=== PATIENT | male | born 1930 | race Caucasian/White ===

== ENCOUNTER 2017-10-09 12:40 | Outpatient (CLI) | payer MEDICARE, BC ==
[2017-10-09 13:41] LABS: Hemoglobin 15.6 g/dL (14.0-18.0); Mean Corpuscular HGB CONC 33.3 g/dL (32.0-36.0); Mean Corpuscular Hemoglobin 33.6 pg (27.0-31.0); Mean Platelet Volume 7.3 fL (7.4-10.4); Platelet Count 199 thou/uL (130-400); RBC Distribution Width 11.7 % (11.5-14.5); Red Blood Cell (RBC) Count 4.63 mill/uL (4.70-6.10); White Blood Cell (WBC) Count 8.4 thou/uL (4.8-10.8)
[2017-10-09 13:45] LABS: PTT 27.5 SEC (22.9-36.1)
[2017-10-09 14:02] LABS: ALT (SGPT) 37 U/L (8-55); AST (SGOT) 28 U/L (5-34); Albumin 4.3 g/dL (3.4-4.8); Alkaline Phosphatase 64 U/L (40-150); Anion Gap 13 mmol/L (10-20); BUN (Urea Nitrogen) 15 mg/dL (8.4-25.7); Bilirubin, Total 0.6 mg/dL (0.2-1.2); Calc. Creatinine Clearance 0 mL/min (70-130); Calcium 9.5 mg/dL (7.8-10.44); Carbon Dioxide 23 mmol/L (23-31); Chloride 104 mmol/L (98-107); Estimated GFR-MDRD 66; Globulin 2.6 g/dL (2.4-3.5); Glucose 112 mg/dL (83-110); Potassium 4.5 mmol/L (3.5-5.1); Protein, Total 6.9 g/dL (5.8-8.1); Sodium 135 mmol/L (136-145)
== END 2017-10-09 12:41 | disposition home or self-care (01) ==
LOC: LABBT 12:40
PROVIDERS: ATTEND Internal Medicine Cardiovascular Disease
DX: Z48.812 Encounter for surgical aftercare following surgery on the circulatory system (principal); Z95.818 Presence of other cardiac implants and grafts
CPT/HCPCS: 80053; 85027; 85610; 85730; 93005; 93010

== ENCOUNTER → 2017-10-24 | Day surgery (SDC) | payer MEDICARE, BC ==
[2017-10-09 13:14] VITALS: BMI 25.4
[~2017-10-24] MED LIST: Lidocaine 1% w/Epinephrine 1:100K 30 ML VIAL ONE
--- NOTE | 2017-10-24 10:10 | DIS ---
DATE OF OUTPATIENT PROCEDURE: 10/24/2017 INDICATION FOR PROCEDURE: This was an elderly 87-year-old gentleman who is status post an implantabl e loop recorder implantation several years ago prior to undergoing pacemaker insertion. His other di agnoses include dyslipidemia. DISCHARGE DIAGNOSES: This was an elderly 87-year-old gentleman who is status post an implantable loo p recorder implantation several years ago prior to undergoing pacemaker insertion. His other diagnos es include dyslipidemia. PROCEDURE: Procedure in hospital was removal of the implantable loop recorder. FOLLOWUP: His follow up will be with me in the next 1-2 weeks for evaluation of the wound. Otherwise , he can resume his normal follow ups with his other physicians and resume also his previous activiti es. DISCHARGE MEDICATIONS: Same as his admission medications. These include aspirin 81 mg a day, levoth yroxine 88 mcg daily, Crestor 5 mg a day, Co Q 10 4 tablets a day, multivitamins daily, Saw Sabattus 500 mg daily. HOSPITAL COURSE: This is very pleasant 87-year-old gentleman who underwent a LINQ implantable loop r ecorder several years ago. The device has now reached I believe end of the effective lifespan and th en the pacemaker has already been inserted and this gives good also evaluation of any type of arrhyth mias. The pacemaker was implanted in 2014, it has been functioning normally. At this time he was ad vised to undergo the removal of the LINQ device implantable loop recorder. This was performed today without difficulties or complications. If the patient will remain stable, he will be discharged to [facility] as soon as his discharge papers are in order. He will see me back in the office in the next 1-2 weeks. Should he have any problems with any obvious signs of infection then he is to call me as soon as possible.
--- NOTE | 2017-10-24 23:31 | CCL ---
DATE OF PROCEDURE: 10/24/2017 INDICATION FOR PROCEDURE: An 87-year-old patient who had undergone an implantable loop recorder several years ago and then unde r eventually underwent pacemaker insertion. He was requesting that we remove the Linq loop recorder. The pacemaker has been functioning normally and he was advised to have removal of the Linq. He was taken to the cardiac catheterization lab where he was prepped and draped in sterile fashion. A Linq which is an implantable loop recorder. He was prepped and draped in sterile fashion. Using 1 % local Xylocaine and the area was anesthetized and using careful technique and a small incision was made old incisional site where the Ling had been implanted and then new device was easily removed wi thout complications or difficulties and the wound was closed using Dermabond and Steri-Strips. IMPRESSION: Status post Linq implantable loop recorder and then removal of the device today as the device had tiana roached elective removal or in of life on the device.
== END ==
LOC: CCL 06:36
PROVIDERS: ATTEND Internal Medicine Cardiovascular Disease
PROC: 02P Heart and Great Vessels, Removal (ICD-10-PCS; principal; 2017-10-24)
DX: Z45.89 Encounter for adjustment and management of other implanted devices (principal); Z95.818 Presence of other cardiac implants and grafts; E78.5 Hyperlipidemia, unspecified; Z95.5 Presence of coronary angioplasty implant and graft
CPT/HCPCS: 33284; J2001

== ENCOUNTER 2018-07-30 10:32 | Outpatient (CLI) | payer MEDICARE, BC ==
--- NOTE | 2018-07-30 11:15 | RAD ---
TWO VIEWS CHEST: Comparison: 04-20-15 History: Respiratory infection for three weeks. FINDINGS: Two views of the chest shows normal sized cardiomediastinal silhouette with atherosclerotic calcifica tions in the aorta. A pacemaker is seen which its leads in the right atrium of the ventricle. There i s no evidence of consolidation or pleural effusion. A calcified granuloma projects over the left uppe r lobe. IMPRESSION: No evidence of acute cardiopulmonary disease. POS: [facility]
== END 2018-07-30 10:33 | disposition home or self-care (01) ==
LOC: SCSRAD 10:32
PROVIDERS: ATTEND Nurse Practitioner Family
DX: J18.0 Bronchopneumonia, unspecified organism (principal)
CPT/HCPCS: 71046

== ENCOUNTER 2018-08-05 11:35 | Inpatient (IN) | payer MEDICARE, BC ==
--- NOTE | 2018-08-05 12:59 | RAD ---
TWO VIEWS CHEST: DATE: 08/05/2018. PROVIDED CLINICAL HISTORY: Cough. FINDINGS: Comparison 07/30/2018. Cardiac and mediastinal silhouette is unchanged in appearance. Vascular calci fication is again noted. Left subclavian cardiac pacing device is again seen in similar position. E mphysematous changes are redemonstrated. No focal consolidation, pleural fluid, or pneumothorax appa rent. IMPRESSION: Stable radiographic appearance of the chest. POS: [facility]
[2018-08-05] MEDS ORDERED: Iopamidol 370 76% 100 ML VIAL ONE (13:41)
[2018-08-05 13:59] LABS: #Eosinphils 0.1 thou/uL (0.0-0.7); #Lymphocytes 1.3 thou/uL (1.20-3.40); #Monocytes 0.8 thou/uL (0.11-0.59); #Neutrophils 5.7 thou/uL (1.40-6.50); %Basophils 0.1 % (0.0-1.0); %Eosinophils 1.2 % (0.0-10.0); %Lymphocytes 16.6 % (21.0-51.0); %Monocytes 10.2 % (0.0-10.0); %Neutrophils 71.9 % (42.0-75.0); Hemoglobin 13.9 g/dL (14.0-18.0); Mean Corpuscular HGB CONC 33.5 g/dL (32.0-36.0); Mean Corpuscular Hemoglobin 31.5 pg (27.0-31.0); Mean Corpuscular Volume 93.9 fL (78.0-98.0); Mean Platelet Volume 6.1 fL (7.4-10.4); Platelet Count 231 thou/uL (130-400); RBC Distribution Width 11.8 % (11.5-14.5); Red Blood Cell (RBC) Count 4.42 mill/uL (4.70-6.10); White Blood Cell (WBC) Count 7.9 thou/uL (4.8-10.8)
[2018-08-05 14:21] LABS: ALT (SGPT) 24 U/L (8-55); AST (SGOT) 22 U/L (5-34); Albumin 3.6 g/dL (3.4-4.8); Alkaline Phosphatase 73 U/L (40-150); Anion Gap 13 mmol/L (10-20); BUN (Urea Nitrogen) 13 mg/dL (8.4-25.7); Bilirubin, Total 0.4 mg/dL (0.2-1.2); Calc. Creatinine Clearance 0 mL/min (70-130); Calcium 9.3 mg/dL (7.8-10.44); Carbon Dioxide 24 mmol/L (23-31); Chloride 102 mmol/L (98-107); Estimated GFR-MDRD 84; Globulin 3.4 g/dL (2.4-3.5); Glucose 98 mg/dL (83-110); Potassium 4.4 mmol/L (3.5-5.1); Sodium 135 mmol/L (136-145)
[2018-08-05] MEDS ORDERED: Enoxaparin Sodium 80 MG/0.8 ML SYRINGE ONE (15:52)
--- NOTE | 2018-08-05 16:00 | CT ---
CT CHEST WITH IV CONTRAST: 08/05/2018 PROVIDED CLINICAL HISTORY: Cough. FINDINGS: There is a large central pulmonary embolus present, which basically occludes the entire right main pu lmonary artery. This commences in the distal main pulmonary artery and nearly completely occludes th e origin of the left main pulmonary artery. This clot extends into the right upper lobe pulmonary ar terial system. There is, however, no evidence for increased right ventricular pressures. Vascular c alcification is noted. The heart, pericardium, and great vessels appear otherwise unremarkable. The lung are free of significant opacity. No pleural fluid or pneumothorax apparent. Left subclavian c ardiac pacing device is noted. Visualized portions of the upper abdomen demonstrate no acute process . The osseous structures demonstrate no concerning lytic or blastic lesions. IMPRESSION: Saddle pulmonary embolus with preferential involvement and essential occlusion of the right main pulm onary artery. Findings communicated to Dr. Fleming, via telephone, at 3:31 p.m. on 08/05/2018. CODE CR POS: [facility]
[2018-08-05 16:26] LABS: Troponin I 0.017 ng/mL (< 0.028)
[2018-08-05] MEDS ORDERED: Bisacodyl 5 MG TAB PO PRN (18:00)
[2018-08-05] MEDS ORDERED: Ondansetron PF 4 MG/2 ML Vial IVP PRN (18:00)
[2018-08-05] MEDS ORDERED: Acetaminophen 325 MG TAB PO PRN (18:00)
[2018-08-05] MEDS ORDERED: Senokot S 8.6-50 MG TAB PO PRN (18:00)
[2018-08-05] MEDS ORDERED: hydrALAZINE 20 MG/ML VIAL SLOW IVP PRN (18:00)
[2018-08-05] MEDS ORDERED: cloNIDine 0.1 MG TAB PO PRN (18:00)
[2018-08-05] MEDS ORDERED: Nitroglycerin 0.4 MG TAB (25 Tab Bottle) SL PRN (18:00)
[2018-08-05] MEDS ORDERED: Calcium Carbonate 500 MG ChewTAB PO PRN (18:00)
[2018-08-05 18:35] VITALS: BMI 21.4
[2018-08-05 19:12] LABS: Troponin I 0.034 ng/mL (< 0.028)
--- NOTE | 2018-08-05 21:03 | HP ---
PRIMARY CARE PHYSICIAN: Cash Price MD CHIEF COMPLAINT: Cough and worsening shortness of breath. HISTORY OF PRESENTING ILLNESS: Mr. Greco is a very pleasant 88-year-old male with past medical history only of dyslipidemia, who presented to the emergency room with unrelenting cough for 3 weeks as well as worsening shortness of breath. History is mainly obtained from the patient himself and electronic medical records have been reviewed and case has been discussed with admitting ER physician, Dr. Fleming. Mr. Greco reports that he is fairly active and has been in his usual health up until 2-1/2 weeks ago. He started to have some nagging cough, for which he sought attention at the primary care physician's office. He was given some inhalers and eventually some antibiotic injections and it did not go away. He later started to have some shortness of breath, which has progressively gotten worse to the point where he presented to the ER today. He has also been treated with steroid for this URI by his PCP, but the symptoms have been unrelenting. He denies any fever or chills. He denies any chest pain or palpitations. He denies any lower extremity swelling or pain. No recent illnesses. No recent travel. He denies any weight loss, night sweats, or malaise. Denies any blood in his stools. Denies any urinary symptoms. Upon presentation to the emergency room, he was hemodynamically stable with a blood pressure of 157/89, heart rate 77, respirations 20, and saturating 95% on room air. His initial evaluation included a chest x-ray, which was unremarkable. A 12-lead EKG showed a paced rhythm with complete left bundle branch block. He underwent a CT angio of his chest which showed a saddle PE with preferential involvement and essential occlusion of the right main pulmonary artery. There was no evidence of increased right ventricular pressure as per the CT scan. No pulmonary opacities were noticed. No pulmonary edema was seen. He was given a therapeutic dose of Lovenox and is now being admitted for saddle pulmonary embolism. The patient reports that he recently had a skin cancer removed from his scalp by a head refrigerating engineer, Dr. Henriquez. He reports that he was off aspirin for this for a week. He actually has more procedures scheduled to get the remaining surrounding area removed by his head refrigerating engineer in the upcoming few weeks. PAST MEDICAL HISTORY: 1. History of sick sinus syndrome, status post pacemaker placement. 2. Hypothyroidism. 3. Dyslipidemia. PAST SURGICAL HISTORY: 1. Hernia repair. 2. Pacemaker placement 2 to 3 years ago. PSYCHIATRIC HISTORY: None. No anxiety. No depression. SOCIAL HISTORY: He is very active and plays golf. He has no history of drug, tobacco, or alcohol abuse. Lives with his family. CODE STATUS: Full code discussed with the patient. FAMILY HISTORY: Denies any family history of clotting or bleeding disorder or any cancers. ALLERGIES: NO KNOWN MEDICATION ALLERGIES. HOME MEDICATIONS: As listed in the ER records; 1. Levothyroxine 88 mcg daily. 2. Crestor 5 mg daily. 3. Zyrtec 10 mg daily. These further needs to be confirmed. REVIEW OF SYSTEMS: A 12-point review of system was done. It was negative except for those mentioned in the history and physical. LABORATORY DATA: His CBC is unremarkable except for hemoglobin at 13.9. His differential shows mild elevation in the monocytes at 10.2%, but otherwise it is within normal limits. Serum chemistry shows sodium of 135. Troponin is 0.025 with repeat troponin of 0.017. BNP normal at 90. PSA 3.15. Chest x-ray by my review has no evidence of pleural effusion or edema. A 12-lead EKG by my review shows paced rhythm without acute ST or T-wave changes. CT angio as above shows saddle PE with obstruction of the right pulmonary artery. PHYSICAL EXAMINATION: VITAL SIGNS: Most recent vital signs; temperature 97.5, pulse of 73, respirations 18, saturating 93% on room air, blood pressure 179/91. GENERAL: He gets easily winded with talking, but is in no acute distress. Awake, alert, and oriented x3. Appears age-appropriate and well nourished. HEENT: Mucous membrane is moist and pink. No oropharyngeal exudate or erythema. Head is normocephalic, atraumatic. Pupils equal, reactive to light and accommodation. Extraocular movements intact. NECK: Supple without any lymphadenopathy, JVD, or bruit. CHEST: Clear to auscultation without any wheezing, rales, or rhonchi. HEART: Rate and rhythm is regular without any murmurs, rubs, or gallops. ABDOMEN: Soft, nontender, nondistended with positive bowel sounds. EXTREMITIES: Free of any cyanosis, clubbing, or edema. NEUROLOGICAL: Nonfocal. SKIN: Free of any rashes or bruises, feels warm and dry to touch. PSYCHIATRIC: Normal affect. IMPRESSION AND PLAN: 1. Saddle pulmonary embolism. There appears to be some chronicity to his pulmonary embolism. Thankfully, he is hemodynamically stable at this time without any significant evidence of right ventricular strain. There is no pulmonary edema. Cardiac enzymes and BNP are within normal limits. I have briefly discussed this case with voice over announcer on-call, Dr. Tan, and at this time, TPA is not given as the patient is quite stable. We will continue with full anticoagulation with Lovenox 1 mg/kg b.i.d. and he will most likely require oral anticoagulation for 3 to 6 months. The cause of the pulmonary embolism is unknown at this time. It seems unprovoked. He has no evidence to suggest DVT in his legs either. No symptoms to suggest occult malignancies. PSA was done for this reason and was found to be within normal limits. We will also check stool for occult blood. Consult Pulmonary Medicine while in-house. 2. Hypothyroidism. We will restart his levothyroxine. 3. Dyslipidemia. Restart his Crestor. 4. History of skin cancer. I have encouraged him to call his head refrigerating engineer with this new development as I am not sure how urgent his skin cancer removal surgery is. At this time, he absolutely needs anticoagulation without interruption for at the very least 3 months. 5. Code status, full code discussed with the patient in detail. 6. Deep venous thrombosis and gastrointestinal prophylaxis. Continue supportive care. DISPOSITION: Mr. Greco will be admitted to hospital for saddle PE. He is currently hemodynamically stable. Estimated length of stay at this time is at least 2 to 3 midnights. Further management will depend upon his clinical course. Job ID: [id number]
[2018-08-05] MEDS: Famotidine 20 MG TAB PO SCH (21:11)
[2018-08-05] MEDS: Rosuvastatin 5 MG TAB PO SCH (21:11)
[2018-08-05] MEDS: Enoxaparin Sodium 80 MG/0.8 ML SYRINGE SC SCH (21:12)
--- NOTE | 2018-08-06 01:43 | CON ---
DATE OF CONSULTATION: 08/05/2018 SERVICE: Pulmonary Medicine. HISTORY OF PRESENT ILLNESS: The patient is a very pleasant 88-year-old white male, who had an onset of cough about 3 weeks ago. He went to see his primary care physician, who gave him a shot of steroids. The cough persisted and next week, he went back. He ended up getting put on Levaquin. The cough persisted. As such , he went back to his primary care physician and he got a chest x-ray, which was essentially unremarkable. He was having paroxysms of coughing. He was not having fevers, chills, nausea, vomiting, or diarrhea. As such, he presented to the emergency department. At that location, he ended up getting a CT of the chest with contrast, and a respiratory virus panel. The CT of the chest with contrast was unremarkable except for a massive pulmonary embolism. That being said, the patient did not have any tachypnea, tachycardia, hypoxemia, chest discomfort, or pleuritic chest pain. The study was suboptimal for evaluating a pulmonary embolism. He also had a respiratory virus panel that was positive for a viral organism. Otherwise , he is in his usual state of health. In between his coughing fits, he has actually no complaints. Of note, his recently got sick as well. PAST MEDICAL HISTORY: 1. Dyslipidemia. 2. Hypothyroidism. 3. Seasonal allergies. PAST SURGICAL HISTORY: 1. Herniorrhaphy. 2. Pacemaker placement 2 to 3 years ago. 3. Loop recorder previously placed. SOCIAL HISTORY: Negative for alcohol, tobacco, or illicit drug use. He denies exposure to chemicals, dust, asbestos, or tuberculosis. He walks 3 miles on a daily basis. He had been able to do this for the last couple of months, but specifically denies dyspnea with exertion. FAMILY HISTORY: Noncontributory. ALLERGIES: NO KNOWN DRUG ALLERGIES. MEDICATIONS: List of his inpatient medications was reviewed. No specific updates were made at this time. REVIEW OF SYSTEMS: General, head, ears, eyes, nose, throat, cardiovascular, respiratory, GI, , musculoskeletal, neurologic, and skin are negative except as mentioned in the HPI. PHYSICAL EXAMINATION: VITAL SIGNS: Afebrile, pulse 72, blood pressure 172/85, respirations 16, and saturation 92% on room air. GENERAL: The patient is awake and alert, in no apparent distress. LUNGS: Excellent air entry. There is no prolonged expiratory phase or wheezing. There is no other adventitious sounds. HEART: Normal rate, regular. ABDOMEN: Soft, nontender, and nondistended. Bowel sounds are positive. MUSCULOSKELETAL: No cyanosis or clubbing. There is no pitting in the bilateral lower extremities. NEUROLOGIC: Grossly nonfocal. LABORATORY DATA: WBCs 7.9, hemoglobin 13.9, platelets 231,000. INR 1.0. Basic metabolic profile and liver function studies are essentially unremarkable. Cardiac enzymes are gently uptrending to 0.034. BNP is 90 today. PSA is 3.15. Urinalysis is unremarkable. Respiratory virus panel is positive for rhinovirus. IMAGING STUDIES: 1. Chest x-ray demonstrates no acute cardiopulmonary abnormality. 2. CT of the chest once again demonstrates no infiltrates. There is no significant volume overload. That being said, there is what appears to be a very large clot burden in the right pulmonary artery. ASSESSMENT: 1. Acute pulmonary embolism, with a very large clot burden. 2. Troponin, which is in the indeterminate range. 3. Acute bronchitis secondary to rhinovirus. DISCUSSION AND PLAN: I will repeat a troponin and a BNP tomorrow morning. If these things are uptrending, we will get an echocardiogram. If this is suggestive of significant right heart strain or the troponin and BNP are increasing, we will likely need to strongly consider whether or not tPA should be administered. At this point, we will keep him on his Lovenox scheduled q.12. Pulmonary Critical Care will continue to follow in this location. 70 minutes have been devoted to this patient in various activities. I personally reviewed all imaging studies and laboratory data noted within this document. For fifty percent of this time, I was interacting with the patient at the bedside or coordinating care with the care team. For the remainder of the time I was immediately available to the patient in the hospital unit. Job ID: [id number] [facility]
[2018-08-06] MEDS: Levothyroxine Sodium 88 MCG TAB PO SCH (04:59)
[2018-08-06 05:55] LABS: Hemoglobin 13.2 g/dL (14.0-18.0); Platelet Count 224 thou/uL (130-400)
[2018-08-06 06:46] LABS: Anion Gap 12 mmol/L (10-20); BUN (Urea Nitrogen) 11 mg/dL (8.4-25.7); Calc. Creatinine Clearance 61 mL/min (70-130); Carbon Dioxide 22 mmol/L (23-31); Chloride 102 mmol/L (98-107); Estimated GFR-MDRD 84; Glucose 97 mg/dL (83-110); Sodium 132 mmol/L (136-145)
[2018-08-06 06:52] LABS: Troponin I 0.072 ng/mL (< 0.028)
[2018-08-06] MEDS ORDERED: Prevnar 13-Val Conj/PF 0.5 ML SYRINGE IM ONE (09:00)
[2018-08-06] MEDS: Famotidine 20 MG TAB PO SCH ×2 (09:18→20:17)
[2018-08-06] MEDS: Multivit, Therapeutic 1 TAB PO SCH (09:20)
[2018-08-06] MEDS: Enoxaparin Sodium 80 MG/0.8 ML SYRINGE SC SCH ×2 (09:20→20:17)
[2018-08-06] MEDS: Ubidecarenone 50 MG CAP PO SCH (09:21)
--- NOTE | 2018-08-06 13:49 | PRG ---
DATE OF SERVICE: 08/06/2018 SERVICE: Pulmonary Medicine. INTERVAL HISTORY: The patient is doing absolutely fantastic. He is on room air. He does not have any shortness of breath, pleuritic chest pain, dyspnea on exertion. He is basically carrying along in his room like there is absolutely no issue. There have been no overnight events. He slept fairly well. OBJECTIVE: VITAL SIGNS: Afebrile. Pulse 70, blood pressure 177/81, respirations 18, saturation 93% on room air. GENERAL: The patient is awake and alert, in no apparent distress. LUNGS: Excellent air entry with no prolonged expiratory phase or wheezing. HEART: Normal rate, regular. ABDOMEN: Soft, nontender, and nondistended. Bowel sounds are positive. MUSCULOSKELETAL: No cyanosis or clubbing. There is no pitting in the bilateral lower extremities. NEUROLOGIC: Grossly nonfocal. LABORATORY DATA: Hemoglobin 13.2 and stable, platelets 224,000. Basic metabolic profile simply unremarkable. PSA is normal. His BNP and troponin are both up trending gently. Respiratory virus panel was positive for rhinovirus. ASSESSMENT: 1. Acute pulmonary embolism, submassive. 2. Acute bronchitis secondary to rhinovirus. DISCUSSION AND PLAN: I will leave him on his anticoagulation. I am looking to see the results of the echocardiogram. If it looks as though there is right heart strain, we will discuss giving him tPA. He only has one relative contraindication, which is his age. After discussing the risks and benefits of moving forward with this procedure, the patient is on board with it. I will continue to follow while the patient remains inhouse. Certainly, if he has any significant instability hemodynamically, we will move a part-time line. Job ID: [id number]
--- NOTE | 2018-08-06 15:48 | PDOC.PN ---
- Subjective Encounter Start Date: 08/06/18 Encounter Start Time: 11:00 -: old records requested/rev Pt seen and examined, chart reviewed in its entirety, this is my first visit with this patient. follow up for saddle PE, elevated trop, chronic systolic CHF No F/C, no N/V/D/C, no CP or SOB, no cough or sputum All systems reviewed and neg except as above - Objective Resuscitation Status - Order Detail: 08/05/18 18:00 Resuscitation Status Routine Resuscitation Status: FULL: Full Resuscitation Discussed with: discussed w pt MAR Reviewed: Yes Vital Signs & Weight: Vital Signs (12 hours) Temp Pulse Resp BP Pulse Ox 08/06/18 12:00 97.5 F L 70 18 177/81 H 93 L 08/06/18 07:56 92 L 08/06/18 07:54 98.9 F 68 16 140/70 92 L 08/06/18 04:00 97.6 F 68 16 135/70 95 Weight Weight 158 lb 4.8 oz Result Diagrams: 08/06/18 04:54 08/08/18 10:56 Radiology Reviewed by me: Yes EKG Reviewed by me: Yes Phys Exam - Physical Examination Constitutional: NAD HEENT: PERRLA, moist MMs, sclera anicteric, oral pharynx no lesions Neck: no nodes, no JVD, supple, full ROM Respiratory: no wheezing, no rales, no rhonchi, clear to auscultation bilateral Cardiovascular: RRR, no significant murmur, no rub Gastrointestinal: soft, non-tender, no distention, positive bowel sounds Musculoskeletal: no edema Neurological: non-focal, normal sensation, moves all 4 limbs Lymphatic: no nodes Psychiatric: normal affect, A&O x 3 Skin: no rash, normal turgor, cap refill <2 seconds Dx/Plan (1) Saddle pulmonary embolus Code(s): I26.92 - SADDLE EMBOLUS OF PULMONARY ARTERY W/O ACUTE COR PULMONALE Status: Acute (2) Chronic systolic (congestive) heart failure Code(s): I50.22 - CHRONIC SYSTOLIC (CONGESTIVE) HEART FAILURE Status: Chronic (3) HLD (hyperlipidemia) Code(s): E78.5 - HYPERLIPIDEMIA, UNSPECIFIED Status: Chronic Qualifiers: Hyperlipidemia type: unspecified Qualified Code(s): E78.5 - Hyperlipidemia , unspecified (4) Elevated troponin Code(s): R74.8 - ABNORMAL LEVELS OF OTHER SERUM ENZYMES Status: Acute - Plan cont current plan of care, plan discussed w/ family, PT/OT, out of bed/ambulate * .
[2018-08-06] MEDS: Guaifenesin DM 100-10/5 ML UDCUP PO PRN ×2 (15:52→20:18)
[2018-08-06] MEDS: Rosuvastatin 5 MG TAB PO SCH (20:17)
[2018-08-06] MEDS: Benzonatate 100 MG CAP PO PRN (20:18)
--- NOTE | 2018-08-07 03:42 | PDOC.EVN ---
Event Note - Event Note Event Note: RN called for episode for dizziness and then pt has a syncopal episode.VS showed hypotension w SBP in 70s.He recovered quickly w improvement in BP w Trendelenburg position. Will do frequent VS check but most likely will need t-PA for saddle PE given low EF on ECHO. will send another BNP and troponin level to trend.
[2018-08-07] MEDS: Levothyroxine Sodium 88 MCG TAB PO SCH (05:58)
[2018-08-07 06:04] LABS: Troponin I 0.983 ng/mL (< 0.028)
--- NOTE | 2018-08-07 06:13 | PDOC.EVN ---
Event Note - Event Note Event Note: Troponin and BNP both have trended up.BP better and HD stable for now. Will likely need t-PA and CCU transfer. will notify day team.
[2018-08-07] MEDS: Aspirin 81 mg Enteric Coated Tablet PO SCH (08:40)
[2018-08-07] MEDS: Enoxaparin Sodium 80 MG/0.8 ML SYRINGE SC SCH (08:40)
[2018-08-07] MEDS: Ubidecarenone 50 MG CAP PO SCH (08:50)
[2018-08-07] MEDS: Famotidine 20 MG TAB PO SCH ×3 (08:50→21:10)
[2018-08-07] MEDS: Multivit, Therapeutic 1 TAB PO SCH (08:50)
[2018-08-07] MEDS ORDERED: ALTEPLASE IVPB SCH (09:45)
[2018-08-07] MEDS ORDERED: Sodium Chloride 0.9% 50 ML IVPB SCH (11:00)
[2018-08-07] MEDS: Benzonatate 100 MG CAP PO PRN ×2 (13:15→23:09)
[2018-08-07] MEDS: Guaifenesin DM 100-10/5 ML UDCUP PO PRN ×2 (13:47→18:19)
[2018-08-07] MEDS ORDERED: Apixaban 5 MG TAB PO SCH (18:15)
[2018-08-07] MEDS: Rosuvastatin 5 MG TAB PO SCH (21:10)
[2018-08-08] MEDS: Guaifenesin DM 100-10/5 ML UDCUP PO PRN (02:47)
[2018-08-08 04:48] LABS: Anion Gap 11 mmol/L (10-20); BUN (Urea Nitrogen) 12 mg/dL (8.4-25.7); Calc. Creatinine Clearance 54 mL/min (70-130); Calcium 8.3 mg/dL (7.8-10.44); Carbon Dioxide 23 mmol/L (23-31); Chloride 94 mmol/L (98-107); Estimated GFR-MDRD 72; Glucose 148 mg/dL (83-110); Potassium 3.9 mmol/L (3.5-5.1); Sodium 124 mmol/L (136-145)
[2018-08-08 04:54] LABS: Troponin I 0.294 ng/mL (< 0.028)
[2018-08-08] MEDS: Levothyroxine Sodium 88 MCG TAB PO SCH (06:26)
--- NOTE | 2018-08-08 08:48 | PDOC.PN ---
- Subjective Encounter Start Date: 08/07/18 Encounter Start Time: 09:00 -: old records requested/rev overnight events reviewed follow up for saddle embolus, elevated trop No F/C, no N/V/D/C, tPA protocol intiiated All systesm reviewed and neg x as above - Objective Resuscitation Status - Order Detail: 08/05/18 18:00 Resuscitation Status Routine Resuscitation Status: FULL: Full Resuscitation Discussed with: discussed w pt MAR Reviewed: Yes Vital Signs & Weight: Vital Signs (12 hours) Temp Pulse Resp BP Pulse Ox 08/08/18 04:00 98.0 F 08/08/18 02:00 67 23 H 105/61 92 L 08/08/18 01:00 69 23 H 101/61 95 08/08/18 00:00 99 F 71 20 93/50 L 100 08/07/18 23:00 78 23 H 101/61 100 08/07/18 22:00 67 27 H 104/59 L 96 08/07/18 21:00 75 25 H 98/56 L 95 Weight Admit Weight 162 lb 7.691 oz Weight 161 lb 13.109 oz Most Recent Monitor Data Heart Rate from ECG 62 NIBP 98/55 NIBP BP-Mean 74 Respiration from ECG 23 SpO2 96 I&O: 08/07/18 08/08/18 08/09/18 06:59 06:59 06:59 Intake Total 2090 Output Total 625 Balance 1465 Result Diagrams: 08/06/18 04:54 08/08/18 03:38 Radiology Reviewed by me: Yes Phys Exam - Physical Examination Constitutional: NAD HEENT: PERRLA, moist MMs, sclera anicteric, oral pharynx no lesions Neck: no nodes, no JVD, supple, full ROM Respiratory: no wheezing, no rales, no rhonchi, clear to auscultation bilateral Cardiovascular: RRR, no significant murmur Gastrointestinal: soft, non-tender, no distention, positive bowel sounds Musculoskeletal: no edema, pulses present Neurological: non-focal, normal sensation, moves all 4 limbs Lymphatic: no nodes Psychiatric: normal affect, A&O x 3 Skin: no rash, normal turgor, cap refill <2 seconds Dx/Plan - Plan cont current plan of care * .
[2018-08-08] MEDS: Ubidecarenone 50 MG CAP PO SCH (09:00)
--- NOTE | 2018-08-08 09:14 | PRG ---
DATE OF SERVICE: 08/07/2018 SERVICE: Pulmonary Medicine. INTERVAL HISTORY: The patient did poorly overnight. He actually had a syncopal event. He did not fall. He did not strike his head. He almost passed out and lost consciousness. This was associated with very low blood pressure. His troponin went up. His BNP also went up. As such, I had a conversation with him, his daughter , his , and his son on the phone. We talked about the risks and benefits of pursuing tPA and ultimately, they understand that he has a relative contraindication to tPA because of his age, but outside of that, he would be a decent candidate for this. As such, we made preparations to move him to the ICU. He subsequently got the tPA, and did fairly well with it. Afterwards, he was not having any shortness of breath or chest discomfort. PHYSICAL EXAMINATION: VITAL SIGNS: Afebrile, pulse 65, blood pressure 121/60, respirations 25, saturation 94% on room air. GENERAL: The patient is awake and alert, in no apparent distress. LUNGS: Decent air entry. There is no prolonged expiratory phase or wheezing appreciated. HEART: Normal rate, regular. ABDOMEN: Soft, nontender, and nondistended. Bowel sounds are positive. MUSCULOSKELETAL: No cyanosis or clubbing. There is no pitting in the bilateral lower extremities. NEUROLOGIC: Grossly nonfocal. LABORATORY DATA: Troponin 0.98, BNP 230. Both of these things are up trending significantly. Respiratory virus panel is only positive for rhinovirus. ASSESSMENT: 1. Acute pulmonary embolism, submassive. 2. Acute bronchitis secondary to rhinovirus. 3. Acute systolic heart failure. DISCUSSION AND PLAN: Tomorrow morning, we will repeat troponin and a BMP. He will remain in the ICU. If he does well with the tPA, we can initiate Eliquis this afternoon. Pulmonary Critical Care will continue to follow along while the patient remains in the hospital. Job ID: [id number] [facility]
[2018-08-08] MEDS: Apixaban 5 MG TAB PO SCH ×2 (09:21→22:35)
[2018-08-08] MEDS: Famotidine 20 MG TAB PO SCH ×2 (09:22→22:34)
[2018-08-08] MEDS: Multivit, Therapeutic 1 TAB PO SCH (09:22)
[2018-08-08 11:22] LABS: Sodium 123 mmol/L (136-145)
[2018-08-08] MEDS: Benzonatate 100 MG CAP PO PRN (12:17)
[2018-08-08 14:14] LABS: Osmolality, Urine 574 mOsm/kg (300-900)
--- NOTE | 2018-08-08 14:17 | PDOC.PN ---
- Subjective Encounter Start Date: 08/08/18 Encounter Start Time: 11:45 follow up for PE, right heart strain. Pt remains in ICU. Trop better, BNP up. cardiology consulted No f/C, no N/V/D/C, no CP or SOB all systems reviewed and neg x as above - Objective Resuscitation Status - Order Detail: 08/05/18 18:00 Resuscitation Status Routine Resuscitation Status: FULL: Full Resuscitation Discussed with: discussed w pt MAR Reviewed: Yes Vital Signs & Weight: Vital Signs (12 hours) Temp Pulse Ox 08/08/18 08:00 97.9 F 100 08/08/18 04:00 98.0 F Weight Admit Weight 162 lb 7.691 oz Weight 161 lb 13.109 oz Most Recent Monitor Data Heart Rate from ECG 64 NIBP 112/57 NIBP BP-Mean 67 Respiration from ECG 25 SpO2 96 I&O: 08/07/18 08/08/18 08/09/18 06:59 06:59 06:59 Intake Total 2090 330 Output Total 625 220 Balance 1465 110 Result Diagrams: 08/06/18 04:54 08/10/18 05:07 Phys Exam - Physical Examination Constitutional: NAD HEENT: PERRLA, moist MMs, sclera anicteric, oral pharynx no lesions Neck: no nodes, no JVD, supple, full ROM Respiratory: no wheezing, no rales, no rhonchi, clear to auscultation bilateral Cardiovascular: RRR, no significant murmur, no rub Gastrointestinal: soft, non-tender, no distention, positive bowel sounds Musculoskeletal: no edema, pulses present Neurological: non-focal, normal sensation, moves all 4 limbs Lymphatic: no nodes Psychiatric: normal affect, A&O x 3 Skin: no rash, normal turgor, cap refill <2 seconds Dx/Plan (1) Saddle pulmonary embolus Code(s): I26.92 - SADDLE EMBOLUS OF PULMONARY ARTERY W/O ACUTE COR PULMONALE Status: Acute Qualifiers: Chronicity: acute (2) Chronic systolic (congestive) heart failure Code(s): I50.22 - CHRONIC SYSTOLIC (CONGESTIVE) HEART FAILURE Status: Chronic (3) HLD (hyperlipidemia) Code(s): E78.5 - HYPERLIPIDEMIA, UNSPECIFIED Status: Chronic Qualifiers: Hyperlipidemia type: unspecified Qualified Code(s): E78.5 - Hyperlipidemia , unspecified (4) Elevated troponin Code(s): R74.8 - ABNORMAL LEVELS OF OTHER SERUM ENZYMES Status: Acute - Plan * .
[2018-08-08 14:32] LABS: Sodium, Urine Less than 20 mmol/L (Not Available)
[2018-08-08 16:49] LABS: Sodium 122 mmol/L (136-145)
--- NOTE | 2018-08-08 18:05 | PRG ---
DATE OF SERVICE: 08/08/2018 SERVICE: Pulmonary Medicine. INTERVAL HISTORY: The patient is doing outstanding from respiratory standpoint. He remains asymptomatic. He did not have any events since the tPA. There is no blood coming from anywhere. He denies having shortness of breath or chest discomfort. PHYSICAL EXAMINATION: VITAL SIGNS: Afebrile, pulse 72, blood pressure 139/73, respirations 29, and saturation 100% on room air. GENERAL: The patient is awake and alert, in no apparent distress. LUNGS: Excellent air entry. There is no prolonged expiratory phase or wheezing present. HEART: Normal rate. Regular. ABDOMEN: Soft, nontender, and nondistended. Bowel sounds are positive. MUSCULOSKELETAL: No cyanosis or clubbing. There is no pitting in the bilateral lower extremities. NEUROLOGIC: Grossly nonfocal. LABORATORY DATA: WBC 7.9, hemoglobin 13.2. Sodium is trickling down to 122 from 124 this morning. Glucose 148. Troponin has significantly improved to 0.3. ASSESSMENT: 1. Acute pulmonary embolism, submassive. 2. Hyponatremia secondary to syndrome of inappropriate antidiuretic hormone secretion. 3. Acute bronchitis secondary to rhinovirus. 4. Tlt-UE-vierdwenf myocardial infarction, likely secondary to demand. 5. Acute systolic heart failure (I simply do not have a prior echo that was abnormal). PLAN: I will get an EKG, and place a Cardiology consultation. Nephrology is helping us manage the hyponatremia. At this point, from a neurologic standpoint, the patient is asymptomatic. I will repeat a troponin and BNP tomorrow. Pulmonary Critical Care will continue to follow along. If the patient's biomarkers continue to improve tomorrow, he could be considered for transition to the floor and/or discharge in the morning unless Cardiology is planning something. Job ID: [id number]
[2018-08-08] MEDS ORDERED: Conivaptan 20 MG in Premix Bag 1 BAG IVPB SCH (19:15)
[2018-08-08] MEDS: Rosuvastatin 5 MG TAB PO SCH (22:35)
--- NOTE | 2018-08-08 22:57 | CON ---
DATE OF CONSULTATION: CONSULTING PHYSICIAN: Leo العلي MD REASON FOR CONSULTATION: Worsening hyponatremia. IMPRESSION: 1. Hyponatremia. This formal indication is that of syndrome of inappropriate antidiuretic hormone secretion related to intrapulmonary pathology. 2. Pulmonary embolism, which has been known to be associated with syndrome of inappropriate antidiuretic hormone secretion. PLAN: 1. 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 The upper limited free water intake in this patient is about 1.5 L in 24 hours. 2. We will increase the protein intake, liver of animal meat. 3. We will give this patient anti-ADH medication Vaprisol tonight. 4. We will monitor the sodium level accordingly. 5. Further management will be dependent on the clinical course. HISTORY: This is an 88-year-old gentleman, who presented here with cough and worsening shortness of breath. He did undergo a CT scan, which showed a saddle pulmonary embolism with possibility of occlusion of the right main pulmonary artery. The patient admitted with a sodium of 135; however, over the course of hospitalization, it has drifted down to sodium of 122, thus the need for renal consultation. PAST MEDICAL HISTORY: Significant for sick sinus syndrome, hypothyroidism, and dyslipidemia. MEDICATIONS: Reviewed as documented on [employer]. SOCIAL HISTORY: No alcohol, no tobacco, no illicit drug use. FAMILY HISTORY: No family history related to present illness. ALLERGIES: NO KNOWN DRUG ALLERGIES. REVIEW OF SYSTEMS: As documented in the body of history. All other systems were reviewed and found not to be significantly related to presenting illness. PHYSICAL EXAMINATION: GENERAL: The patient was found not to be in any obvious distress. VITAL SIGNS: Noted with the following vital signs; blood pressure 162/82, pulse 76, respiratory rate of 29, and O2 saturation 100%. HEENT EXAMINATION: Unremarkable. Moist oral mucosa. No conjunctival injection or icterus. NECK: Supple. CARDIOVASCULAR SYSTEM: First and second heart sounds were heard. RESPIRATORY SYSTEM: Clear to auscultation. DIGESTIVE SYSTEM: Revealed a benign abdomen with positive bowel sounds. EXTREMITIES: No peripheral edema. SKIN EXAMINATION: No new gross rash. LYMPHATICS: No peripheral lymphadenopathy. 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 Thank you for this consultation. We will follow with you. Dave ID: [id number]
[2018-08-09] MEDS: Guaifenesin DM 100-10/5 ML UDCUP PO PRN ×2 (02:45→10:10)
[2018-08-09 04:55] LABS: Anion Gap 12 mmol/L (10-20); BUN (Urea Nitrogen) 9 mg/dL (8.4-25.7); Calc. Creatinine Clearance 56 mL/min (70-130); Calcium 8.9 mg/dL (7.8-10.44); Carbon Dioxide 24 mmol/L (23-31); Chloride 97 mmol/L (98-107); Estimated GFR-MDRD 73; Glucose 146 mg/dL (83-110); Sodium 129 mmol/L (136-145)
[2018-08-09 05:00] LABS: Troponin I 0.207 ng/mL (< 0.028)
[2018-08-09] MEDS: Levothyroxine Sodium 88 MCG TAB PO SCH (06:24)
[2018-08-09] MEDS: Multivit, Therapeutic 1 TAB PO SCH (10:00)
[2018-08-09] MEDS: Famotidine 20 MG TAB PO SCH ×2 (10:00→21:03)
[2018-08-09] MEDS: Aspirin 81 mg Enteric Coated Tablet PO SCH (10:01)
[2018-08-09] MEDS: Ubidecarenone 50 MG CAP PO SCH (10:01)
[2018-08-09] MEDS: Apixaban 5 MG TAB PO SCH ×2 (10:33→21:02)
[2018-08-09] MEDS ORDERED: predniSONE 20 MG TAB PO SCH (11:30)
--- NOTE | 2018-08-09 12:39 | PRG ---
DATE OF SERVICE: 08/09/2018 SERVICE: Pulmonary Medicine. INTERVAL HISTORY: The patient got a dose of conivaptan last night. His sodium is actually improved at 129. He remains completely asymptomatic. He has no complaints of fevers, chills, nausea, or vomiting. There are essentially no events overnight. OBJECTIVE: VITAL SIGNS: Afebrile, pulse 66, blood pressure 131/62, respirations 23, and saturation 100% on room air. GENERAL: The patient is awake, alert, in no apparent distress. LUNGS: Excellent air entry. There is no prolonged expiratory phase or wheezing. HEART: Normal rate. Regular. ABDOMEN: Soft, nontender, and nondistended. Bowel sounds are positive. MUSCULOSKELETAL: No cyanosis or clubbing. No pitting in the bilateral lower extremities. NEUROLOGIC: Grossly nonfocal. LABORATORY DATA: Sodium 129. Basic metabolic profile is otherwise unremarkable. Troponin is downtrending to 0.2. BNP has increased to 633. ASSESSMENT: 1. Acute pulmonary embolism, submassive. 2. Hyponatremia, secondary to syndrome of inappropriate antidiuretic hormone secretion. 3. Acute bronchitis, secondary to rhinovirus. 4. Qhz-TT-ivemwcdke myocardial infarction, likely secondary to demand, improving. 5. Acute systolic heart failure (no prior echo in this system). PLAN: I will repeat a troponin and a BNP tomorrow. I will also repeat a sodium this afternoon. If the sodium continues to trend in the wrong direction or the BNP keeps going up, we will consider transitioning him to [place] for more advanced interventions like a thrombectomy or directed tPA under ultrasound guidance. Pulmonary Critical Care will continue to follow, but at this point, he is hemodynamically stable for transition to the floor. Job ID: [id number]
[2018-08-09 15:36] LABS: Sodium 128 mmol/L (136-145)
[2018-08-09] MEDS ORDERED: Tolvaptan 15 MG TAB PO SCH (18:00)
--- NOTE | 2018-08-09 18:14 | PRG ---
DATE OF SERVICE: 08/09/2018 SUBJECTIVE: The patient was seen and examined, seems to be doing much better today, responded well to Vaprisol. Noted with the following vital signs. OBJECTIVE: VITAL SIGNS: Afebrile, temperature 97.7, pulse 69, respiratory rate of 26, and blood pressure 131/79. HEENT: Unremarkable. CARDIOVASCULAR: First and second heart sounds were heard. RESPIRATORY: Clear to auscultation. DIGESTIVE: Revealed a benign abdomen with positive bowel sounds. EXTREMITIES: No peripheral edema. SKIN: No new gross rash. LYMPHATICS: No peripheral lymphadenopathy. LABORATORY INVESTIGATION: Showed a sodium of 129, which later drifted down to 128. IMPRESSION: Hyponatremia in the context of syndrome of inappropriate antidiuretic hormone secretion, which is related to pulmonary pathology or pulmonary embolism. PLAN: 1. We will continue free water restriction to about 1.5 L in 24 hours. 2. The patient may benefit from oral tolvaptan. 3. Further management to be dependent on the clinical course. Job ID: [id number]
[2018-08-09] MEDS: Rosuvastatin 5 MG TAB PO SCH (22:25)
[2018-08-10] MEDS: Levothyroxine Sodium 88 MCG TAB PO SCH (05:11)
[2018-08-10 05:37] LABS: Anion Gap 13 mmol/L (10-20); BUN (Urea Nitrogen) 13 mg/dL (8.4-25.7); Calc. Creatinine Clearance 47 mL/min (70-130); Calcium 9.1 mg/dL (7.8-10.44); Carbon Dioxide 25 mmol/L (23-31); Chloride 102 mmol/L (98-107); Estimated GFR-MDRD 64; Glucose 132 mg/dL (83-110); Potassium 4.6 mmol/L (3.5-5.1); Sodium 135 mmol/L (136-145)
[2018-08-10 05:43] LABS: Troponin I 0.091 ng/mL (< 0.028)
[2018-08-10] MEDS ORDERED: predniSONE 20 MG TAB PO SCH (08:00)
[2018-08-10] MEDS: Ubidecarenone 50 MG CAP PO SCH ×2 (09:11→11:03)
[2018-08-10] MEDS: Famotidine 20 MG TAB PO SCH (09:12)
[2018-08-10] MEDS: Apixaban 5 MG TAB PO SCH (09:12)
[2018-08-10] MEDS: Multivit, Therapeutic 1 TAB PO SCH (09:12)
--- NOTE | 2018-08-10 10:32 | PRG ---
DATE OF SERVICE: 08/10/2018 SERVICE: Pulmonary Medicine. INTERVAL HISTORY: The patient is doing outstanding from respiratory standpoint. Denies any shortness of breath or chest discomfort. There has been no interval change to his condition. He has been up walking around without any dyspnea with exertion. Overall, he still remains clinically asymptomatic. OBJECTIVE: VITAL SIGNS: Afebrile, pulse 80, blood pressure 130/73, respirations 20, and saturation 92% on room air. GENERAL: The patient is awake and alert, in no apparent distress. LUNGS: Excellent air entry. There is no prolonged expiratory phase or wheezing present. HEART: Normal rate, regular. ABDOMEN: Soft, nontender, and nondistended. Bowel sounds are positive. MUSCULOSKELETAL: No cyanosis or clubbing. No pitting in the bilateral lower extremities. NEUROLOGIC: Grossly nonfocal. LABORATORY DATA: Sodium 135, which is significantly improved. Basic metabolic profile is otherwise unremarkable. BNP is finally trending down, troponin is significantly improved to 0.09. ASSESSMENT: 1. Acute pulmonary embolism, submassive. 2. Hyponatremia, secondary to syndrome of inappropriate antidiuretic hormone secretion, improving. 3. Acute bronchitis, secondary to rhinovirus. 4. Bvx-JK-tisdrnspb myocardial infarction, secondary to demand. 5. Acute systolic heart failure (no prior echo for comparison in the system). DISCUSSION AND PLAN: I will repeat his sodium. From a purely lung standpoint, the patient is stable for transition home. He will need to be loaded on Eliquis for a week and then drop down to maintenance dose of 5 mg twice daily. I will have him follow up with me in clinic in roughly three months with a preclinic CTA of the chest so that we can verify that lesion went away since previously he was asymptomatic. If anything persists, a biopsy may need to be considered. If he remains in-house, I will continue to follow on Monday. Job ID: [id number]
--- NOTE | 2018-08-10 11:37 | PDOC.CTH ---
<Rand Lagunas - Last Filed: 08/10/18 11:43> Cardiology Progress Note - Subjective The pt seen and examined. No overnight events. No cardiac complaints. - Objective Vital Signs Temp Pulse Resp BP Pulse Ox 08/10/18 08:00 95 08/10/18 03:25 97.4 F L 80 20 130/73 92 L Admit Weight 162 lb 7.691 oz Weight 152 lb 7 oz 08/09/18 08/10/18 08/11/18 06:59 06:59 06:59 Intake Total 1450 1360 Output Total 5571 2250 Balance -4121 -890 - Physical Examination General/Neuro: alert & oriented x3 Neck: no JVD present Lungs: CTA Heart: RRR Abdomen: soft Extremities: other: (No edema) - Telemetry Telemetry Rhythm: SR - Labs Result Diagrams: 08/06/18 04:54 08/10/18 05:07 Troponin/CKMB Troponin I 0.091 ng/mL (< 0.028) H 08/10/18 05:07 - Assessment/Plan 1. Acute on chronic Systolic HF with EF 35-40%; Stable without diuretic. Will start Coreg 3.125mg BID from today 2. Rt lung PE - on Eliquis, which managed by Laboratory Analyst 3. Hyponatoremia - ON Talvaptan; managed by gis software engineer 4. HTN - stable 4. Hyperlipidemia - On statin 5. Hx of PM placement 6. Bronchitis - stable, managed by PCP MAR reviewed * From Cardiac standpoint, the pt is stable to d/c home. The pt will f/u with Dr Cano' office within 2-4wks. Review of Systems - Review of Systems Constitutional: reports: no symptoms reported EENTM: reports: no symptoms reported Respiratory: reports: no symptoms reported Cardiac (ROS): reports: no symptoms reported ABD/GI: reports: no symptoms reported <Jania Cano - Last Filed: 08/10/18 14:47> Cardiology Progress Note - Objective Vital Signs Temp Pulse Resp BP Pulse Ox 08/10/18 12:25 97.0 F L 69 18 125/58 L 98 08/10/18 08:00 97.2 F L 72 19 122/68 97 08/10/18 03:25 97.4 F L 80 20 130/73 92 L Admit Weight 162 lb 7.691 oz Weight 152 lb 7 oz 08/09/18 08/10/18 08/11/18 06:59 06:59 06:59 Intake Total 1450 1360 Output Total 3866 2250 Balance -7315 -470 - Labs Result Diagrams: 08/06/18 04:54 08/10/18 05:07 Troponin/CKMB Troponin I 0.091 ng/mL (< 0.028) H 08/10/18 05:07 - Assessment/Plan Pt. seen and eval. by me. I agree with the A/P by the SLATE CUTTER OPERATOR. I discussed the pt. with pulmonology. He remains asymptomatic. Plan to continue OAC and repeat CT scan in 3 months. I will see him in the office in a couple weeks.
[2018-08-10] MEDS ORDERED: Carvedilol 3.125 MG TAB PO SCH ×2 (12:00→17:00)
[2018-08-10 12:26] VITALS: BP 125/58; TEMP 97
--- NOTE | 2018-08-10 13:22 | PDOC.PN ---
- Subjective Encounter Start Date: 08/09/18 Encounter Start Time: 15:00 follow up for saddle embolus, right heart strain. BNP up, Trop down No F/C, no N/V/D/C. walked 400' with PT - Objective Resuscitation Status - Order Detail: 08/05/18 18:00 Resuscitation Status Routine Resuscitation Status: FULL: Full Resuscitation Discussed with: discussed w pt MAR Reviewed: Yes Vital Signs & Weight: Vital Signs (12 hours) Temp Pulse Resp BP Pulse Ox 08/10/18 12:25 97.0 F L 69 18 125/58 L 98 08/10/18 08:00 97.2 F L 72 19 122/68 97 08/10/18 03:25 97.4 F L 80 20 130/73 92 L Weight Admit Weight 162 lb 7.691 oz Weight 152 lb 7 oz Most Recent Monitor Data Heart Rate from ECG 72 NIBP 133/82 NIBP BP-Mean 111 Respiration from ECG 20 SpO2 98 I&O: 08/09/18 08/10/18 08/11/18 06:59 06:59 06:59 Intake Total 1450 1360 Output Total 5571 2250 Balance -4121 -890 Result Diagrams: 08/06/18 04:54 08/10/18 05:07 Phys Exam - Physical Examination Constitutional: NAD HEENT: PERRLA, moist MMs, sclera anicteric, oral pharynx no lesions Neck: no nodes, no JVD, supple, full ROM Respiratory: no wheezing, no rales, no rhonchi, clear to auscultation bilateral Cardiovascular: RRR, no significant murmur, no rub Gastrointestinal: soft, non-tender, no distention, positive bowel sounds Musculoskeletal: no edema, pulses present Neurological: non-focal, normal sensation, moves all 4 limbs Lymphatic: no nodes Psychiatric: normal affect, A&O x 3 Skin: no rash, normal turgor, cap refill <2 seconds Dx/Plan (1) Saddle pulmonary embolus Code(s): I26.92 - SADDLE EMBOLUS OF PULMONARY ARTERY W/O ACUTE COR PULMONALE Status: Acute Qualifiers: Chronicity: acute (2) Chronic systolic (congestive) heart failure Code(s): I50.22 - CHRONIC SYSTOLIC (CONGESTIVE) HEART FAILURE Status: Chronic (3) HLD (hyperlipidemia) Code(s): E78.5 - HYPERLIPIDEMIA, UNSPECIFIED Status: Chronic Qualifiers: Hyperlipidemia type: unspecified Qualified Code(s): E78.5 - Hyperlipidemia , unspecified (4) Elevated troponin Code(s): R74.8 - ABNORMAL LEVELS OF OTHER SERUM ENZYMES Status: Acute - Plan * .
[2018-08-10] MEDS ORDERED: Apixaban 5 MG TAB PO SCH (14:41)
[2018-08-10 15:03] LABS: Sodium 135 mmol/L (136-145)
[2018-08-11] MEDS ORDERED: Famotidine 20 MG TAB PO SCH (09:00)
--- NOTE | 2018-08-11 13:26 | EKG ---
Test Reason : Blood Pressure : / mmHG Vent. Rate : 065 BPM Atrial Rate : 065 BPM P-R Int : 358 ms QRS Dur : 152 ms QT Int : 416 ms P-R-T Axes : 088 -53 151 degrees QTc Int : 432 ms Electronic atrial pacemaker Left bundle branch block Abnormal ECG Confirmed by ABDELRAHMAN TORREZ DO ([id number]), visual effects editor GISELA REED ([id number]) on 08/11/2018 1:26:38 PM Referred By: Confirmed By:ABDELRAHMAN TORREZ DO
== END 2018-08-10 15:46 | disposition home or self-care (01) | DRG 175 ==
LOC: ERS 11:35 → 2SW 16:19 → OBSVTOIN 17:50 → 2NO 18:05 → CCU 08-07 09:52 → 2NO 08-09 17:59
PROVIDERS: ADMIT Internal Medicine; ATTEND Internal Medicine
DX: I26.92 Saddle embolus of pulmonary artery without acute cor pulmonale (principal); I21.4 Non-ST elevation (NSTEMI) myocardial infarction; I50.23 Acute on chronic systolic (congestive) heart failure; E22.2 Syndrome of inappropriate secretion of antidiuretic hormone; J20.5 Acute bronchitis due to respiratory syncytial virus; E78.5 Hyperlipidemia, unspecified
CPT/HCPCS: 36415; 71046; 71260; 80048; 80053; 83880; 83935; 84300; 84484; 85014; 85018; 85025; 85049; 87633; 93005; 93306; 96372; G0103; G8978-GP-CJ; G8979-GP-CJ; G8980-GP-CJ; G8987-GO-CI; G8988-GO-CI; G8989-GO-CI; J1650; J2997; J7050; J7506

== ENCOUNTER 2018-08-23 12:03 | Outpatient (CLI) | payer MEDICARE, BC ==
--- NOTE | 2018-08-23 13:18 | RAD ---
EXAM: CHEST PA AND LATERAL: History: 88-year-old male with history of dyspnea. Comparison: 08-05-18 FINDINGS: Left ICD. Minimal chronic changes in the upper lung zones and lung bases with some minimal volume los s in the right upper chest. Stable appearance from prior study. No confluent pneumonia, overt edema, or pleural effusion. IMPRESSION: Stable chronic changes. No significant new process. Atherosclerosis of the aorta with ectasia. POS: [facility]
== END 2018-08-23 12:04 | disposition home or self-care (01) ==
LOC: RAD 12:03
PROVIDERS: ATTEND Internal Medicine
DX: R06.00 Dyspnea, unspecified (principal); I70.0 Atherosclerosis of aorta; I77.810 Thoracic aortic ectasia
CPT/HCPCS: 36415; 71046; 80048; 83880; 84484; 85027

== ENCOUNTER 2018-08-28 21:23 | Inpatient (IN) | payer MEDICARE, BC ==
[2018-08-28 22:54] LABS: #Eosinphils 0.1 thou/uL (0.0-0.7); #Lymphocytes 1.3 thou/uL (1.20-3.40); #Monocytes 0.7 thou/uL (0.11-0.59); #Neutrophils 4.5 thou/uL (1.40-6.50); %Basophils 0.5 % (0.0-1.0); %Eosinophils 2.1 % (0.0-10.0); %Lymphocytes 19.7 % (21.0-51.0); %Monocytes 10.4 % (0.0-10.0); %Neutrophils 67.3 % (42.0-75.0); Hemoglobin 12.7 g/dL (14.0-18.0); Mean Corpuscular HGB CONC 34.6 g/dL (32.0-36.0); Mean Corpuscular Hemoglobin 31.1 pg (27.0-31.0); Mean Corpuscular Volume 89.9 fL (78.0-98.0); Mean Platelet Volume 8.1 fL (7.4-10.4); Platelet Count 179 thou/uL (130-400); RBC Distribution Width 12.7 % (11.5-14.5); Red Blood Cell (RBC) Count 4.09 mill/uL (4.70-6.10); White Blood Cell (WBC) Count 6.7 thou/uL (4.8-10.8)
--- NOTE | 2018-08-28 23:11 | RAD ---
CHEST ONE VEIW: 08/28/18 HISTORY: 88-year-old male with shortness of breath. COMPARISON: 08/23/18. FINDINGS: Monitor leads overlie the chest. Left ICD. Stable increased markings and biapical pleural thickening . No confluent pneumonia, overt edema, or pleural effusion. IMPRESSION: No acute intrathoracic disease. No edema or pneumonia or significant pleural effusion. POS: [facility]
[2018-08-28 23:12] LABS: ALT (SGPT) 31 U/L (8-55); AST (SGOT) 30 U/L (5-34); Albumin 3.4 g/dL (3.4-4.8); Alkaline Phosphatase 76 U/L (40-150); Anion Gap 15 mmol/L (10-20); BUN (Urea Nitrogen) 13 mg/dL (8.4-25.7); Bilirubin, Total 0.5 mg/dL (0.2-1.2); CK (CPK) 68 U/L (30-200); Calc. Creatinine Clearance 0 mL/min (70-130); Calcium 8.5 mg/dL (7.8-10.44); Carbon Dioxide 20 mmol/L (23-31); Chloride 95 mmol/L (98-107); Estimated GFR-MDRD 88; Globulin 2.9 g/dL (2.4-3.5); Glucose 129 mg/dL (83-110); Potassium 4.5 mmol/L (3.5-5.1); Protein, Total 6.3 g/dL (5.8-8.1); Sodium 125 mmol/L (136-145)
--- NOTE | 2018-08-28 23:32 | CT ---
CT ANGIOGRAM CHEST WITH 3D RENDERIN08/28/18 HISTORY: 88-year-old male with shortness of breath, recurrent pulmonary embolism. COMPARISON: 08/05/[address] with contrast. There is again noted to be very extensive thrombus involving the main pulmonary artery as well as a r ight and left pulmonary arteries. There is some flow of contrast beyond this huge saddle embolus. The re is some progressive thrombus in the left pulmonary artery when compared to the prior study. There is evidence for right heart strain with some displacement and flattening of the interventricular sept um. There is some minimal patchy linear parenchymal changes bilaterally including some dependent jefferson ges in both posterior lower lungs. Small stable hypodensity in the left lobe of the liver. No pericar dial effusion. Three vessel coronary artery calcific disease. 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 Contrast media does extend beyond the ext ensive intraluminal thrombus into the more peripheral branches of the right and left peripheral pulmo nary artery branches. There is evidence for right heart strain. Three vessel coronary artery calcific disease. Findings were discussed with Dr. Loomis by phone at 11:20 p.m. Code CR POS: [facility]
[2018-08-28] MEDS ORDERED: Heparin 25,000 units/D5W 500 ML IV SCH (23:45)
[2018-08-28] MEDS ORDERED: Heparin 10,000 UNITS/ 10 ML VIAL SLOW IVP SCH (23:45)
[2018-08-28 23:55] LABS: INR-International Normal Ratio 1.4; PTT 41.9 SEC (22.9-36.1); Prothrombin Time 17.4 SEC (12.0-14.7)
--- NOTE | 2018-08-29 00:43 | HP ---
PRIMARY CARE PHYSICIAN: Dr. Cash Price. TIME OF SERVICE: 00:15. CHIEF COMPLAINT: Fatigue and shortness of breath. HISTORY OF PRESENT ILLNESS: Mr. Greco is an 88-year-old gentleman, well known to me from recent hospitalization. He was here from 08/05 through 08/10, for saddle pulmonary embolus. During the hospital stay, he had pulmonary hypertension, was seen by Cardiology and by Pulmonary Critical Care. He had a worsening BNP and so ultimately did receive tPA. The patient was discharged on the , at home was doing better. He returns to the ER today for increasing fatigue and shortness of breath to the point was having difficulty walking across his house. Workup in the ER shows CT angiogram with increased clot burden. Dr. Garcia from Pulmonary was contacted, and due to recent tPA, did not want to give him more tPA, thus he recommended admission with heparin drip. We were subsequently called for admit. Denies any chest pain. No nausea or vomiting. No cough or sputum production. No fevers or chills. PAST MEDICAL HISTORY: Significant for: 1. Sick sinus syndrome status post pacemaker placement. 2. Hypothyroidism. 3. Hyperlipidemia. PAST SURGICAL HISTORY: Hernia repair and pacemaker placement 2-3 years ago. HOME MEDICATIONS: 1. Levothyroxine 88 mcg daily. 2. Crestor 5 mg daily. 3. Zyrtec 10 mg daily. 4. Aspirin 81 mg every other day. 5. Eliquis 5 mg p.o. b.i.d. currently. 6. Carvedilol 3.125 mg p.o. b.i.d. ALLERGIES: NKDA. FAMILY HISTORY: Negative for clotting or bleeding disorders. No immune dysfunction. SOCIAL HISTORY: Negative habits x3. REVIEW OF SYSTEMS: All systems reviewed and negative, except as stated per HPI. PHYSICAL EXAMINATION: VITAL SIGNS: Temperature 98.0, pulse 65, blood pressure 110/72, respiratory rate 22, saturating 94% on room air. GENERAL: He is awake, he is alert, oriented x3, elderly white male, appears to be age appropriate. The patient in no acute distress, but does appear short of breath. HEENT: Normocephalic, atraumatic. Pupils equal, round, reactive to light bilaterally. Mucous membranes moist. There is no visible lesion or no thrush. NECK: Supple. There is mild JVD, but normal carotid upstrokes without bruit. No thyromegaly. LUNGS: Clear to auscultation bilaterally. Good air movement symmetrically. No wheezes, rales, or rhonchi. CARDIOVASCULAR: Normal S1 and S2. No S4 or S4. No audible murmurs. ABDOMEN: Soft, nontender, nondistended. No masses or organomegaly. EXTREMITIES: No cyanosis, no clubbing. He has trace pedal edema. SKIN: Warm, moist, and well perfused. He has no rashes or lesions. NEUROLOGIC: Cranial nerves 2 through 12 grossly intact. He has no focal neurologic deficits. 5/5 strength. LABORATORY DATA: CBC today showed a white count of 6.7, hemoglobin 12.7, hematocrit 36.8, and platelet count is 179,000 with a normal differential. INR is 1.4. Chemistry profile shows sodium 125, potassium 4.5, chloride 95, bicarb 20, BUN 13, creatinine 0.83, glucose 129. Liver functions completely within normal limits. Troponin I was 0.021, which is improved from prior. Urinalysis not done. IMAGING STUDIES: CT scan of the thorax and CT angio of the thorax showed very extensive internal pulmonary artery thrombosis including main pulmonary artery and right and left main pulmonary arteries showing some progression disease compared to the CTA from 08/05, particularly on the left side. There is evidence of right heart strain and 3-vessel coronary artery calcific disease. ASSESSMENT AND PLAN: 1. Saddle pulmonary embolus larger than before, status post tPA in the past. Put on heparin drip. Pulmonary Critical Care followup. We will hold his Eliquis for the time being. 2. Sick sinus syndrome, status post pacemaker placement. 3. Chronic systolic congestive heart failure. We will continue to monitor his heart function very closely. 4. Hyperlipidemia. 5. History of demand ischemia, seems to be resolved at this point. 6. Consult Cardiology and Pulmonary Critical Care. Job ID: [id number]
[2018-08-29] MEDS ORDERED: Acetaminophen 325 MG TAB PO PRN ×2 (01:22→01:37)
[2018-08-29] MEDS ORDERED: Ondansetron ODT 4 MG TAB SL PRN (01:22)
[2018-08-29] MEDS ORDERED: Ondansetron PF 4 MG/2 ML Vial IVP PRN ×2 (01:22→01:37)
[2018-08-29] MEDS ORDERED: HYDROcodone/Acetaminophen 5/325 mg Tablet PO PRN ×2 (01:37)
[2018-08-29] MEDS ORDERED: Ondansetron ODT 4 MG TAB PO PRN (01:37)
[2018-08-29] MEDS ORDERED: Acetaminophen 650 MG Suppository PR PRN (01:37)
[2018-08-29] MEDS ORDERED: Heparin 25,000 units/D5W 500 ML IVPB SCH (01:37)
[2018-08-29] MEDS ORDERED: Heparin 10,000 UNITS/ 10 ML VIAL SLOW IVP SCH (01:37)
[2018-08-29 01:46] LABS: Hemoglobin 12.6 g/dL (14.0-18.0); Platelet Count 170 thou/uL (130-400)
[2018-08-29 01:53] VITALS: BMI 20.8
[2018-08-29 02:03] LABS: Troponin I 0.021 ng/mL (< 0.028)
[2018-08-29 02:08] LABS: Anion Gap 14 mmol/L (10-20); BUN (Urea Nitrogen) 13 mg/dL (8.4-25.7); Calc. Creatinine Clearance 55 mL/min (70-130); Calcium 9.1 mg/dL (7.8-10.44); Carbon Dioxide 22 mmol/L (23-31); Chloride 94 mmol/L (98-107); Estimated GFR-MDRD 74; Glucose 132 mg/dL (83-110); Potassium 4.2 mmol/L (3.5-5.1); Sodium 126 mmol/L (136-145)
[2018-08-29] MEDS ORDERED: Levothyroxine Sodium 88 MCG TAB PO SCH (06:00)
[2018-08-29 07:11] LABS: #Eosinphils 0.2 thou/uL (0.0-0.7); #Lymphocytes 1.4 thou/uL (1.20-3.40); #Monocytes 0.7 thou/uL (0.11-0.59); #Neutrophils 3.6 thou/uL (1.40-6.50); %Basophils 0.1 % (0.0-1.0); %Eosinophils 3.2 % (0.0-10.0); %Lymphocytes 23.9 % (21.0-51.0); %Monocytes 11.2 % (0.0-10.0); %Neutrophils 61.6 % (42.0-75.0); Hemoglobin 11.2 g/dL (14.0-18.0); Mean Corpuscular HGB CONC 34.3 g/dL (32.0-36.0); Mean Corpuscular Hemoglobin 30.6 pg (27.0-31.0); Mean Corpuscular Volume 89.4 fL (78.0-98.0); Mean Platelet Volume 6.3 fL (7.4-10.4); Platelet Count 150 thou/uL (130-400); RBC Distribution Width 12.3 % (11.5-14.5); Red Blood Cell (RBC) Count 3.65 mill/uL (4.70-6.10); White Blood Cell (WBC) Count 5.8 thou/uL (4.8-10.8)
[2018-08-29 08:31] VITALS: TEMP 97.5
[2018-08-29] MEDS ORDERED: Loratadine 10 MG TAB PO SCH (09:00)
[2018-08-29] MEDS ORDERED: Cetirizine HCl 10 MG TAB PO SCH (09:00)
[2018-08-29] MEDS ORDERED: Famotidine 20 MG TAB PO SCH (09:00)
[2018-08-29] MEDS ORDERED: Aspirin 81 mg Enteric Coated Tablet PO SCH (09:00)
--- NOTE | 2018-08-29 09:30 | CON ---
DATE OF CONSULTATION: HISTORY OF PRESENT ILLNESS: An 88-year-old pleasant gentleman, 158 pounds, 6 feet 1 inches, who presented to the hospital with shortness of breath. He recently left the hospital with a diagnosis of massive pulmonary emboli. Discharged home on Eliquis 5 mg twice a day on 08/10/2018. His echo at that time surprisingly did not show a right ventricular strain, but his ejection fraction was slightly decreased at 35% to 40%. He then states following his discharge, he had symptoms of bronchitis with ongoing symptoms for which he saw his primary care physician and apparently was given some kind of antibiotic. His dyspnea further progressed and he presented to the ER. CAT scan now shows impressive large saddle pulmonary emboli with somewhat more extension into the left main pulmonary artery. At this stage, I felt tPA was not warranted. He has appeared to be relatively stable with blood pressure being adequate. The question was whether he would need to be transferred to a tertiary center for thrombectomy. Looking at his CT, I am not so sure he would be a candidate for an embolectomy but require probably cardiopulmonary bypass and sternotomy to vacate his large blood clot. Therefore, he was told to put him on IV heparin. We would further make a decision in the next several days regarding his care. This morning, he is clearly somewhat better. Denies any pain. Denies any shortness of breath. Sitting in bed, eating breakfast. He is a nonsmoker. PAST MEDICAL HISTORY: Pertinent for previous sick sinus pacemaker, hypothyroidism, hyperlipidemia. Recent PE, recent congestive heart failure, depressed EF. HOME MEDICINE: Includes 1. Synthroid 88. 2. Vitamin. 3. Crestor 5. 4. CO-Q 10. 5. Coreg 3.125. 6. Aspirin. 7. Eliquis 10 mg twice a day which apparently was taking 5 mg twice a day at the time of his admission. ALLERGIES: NONE. SOCIAL HISTORY: Unremarkable. Tobacco none. Alcohol none. REVIEW OF SYSTEMS: Otherwise 10-point negative. PHYSICAL EXAMINATION: VITAL SIGNS: His blood pressure is 131/73, sats are 97% on 2 L, respiratory rate 18, temperature 97. CHEST: Decreased breath sounds, no wheezing CARDIAC: Normal S1 and S2. No gallops. ABDOMEN: No masses. DIAGNOSTIC DATA: His white count 5000, H and H 10 and 32, platelet count is 150. Lytes are normal. Creatinine is normal. Sodium is 126. IMPRESSION: 1. Large saddle embolus with extension into the left pulmonary artery compared to two weeks ago. 2. Hyponatremia. 3. Congestive heart failure. 4. Hypothyroidism. Continue IV heparin. Ultrasound of both legs are done. Consideration for an inferior vena cava filter can be made once viewing the ultrasound of his legs. We want to consider discussing with the interventional multiple tube winding machine operator out of [place] to see whether they can do an IV infusion of tPA with a catheter in his pulmonary artery. I am not so sure he is a candidate for thrombectomy at this stage. We will notify Dr. Singh. 70 minutes, 50% direct patient care. Job ID: [id number]
[2018-08-29] MEDS: Carvedilol 3.125 MG TAB PO SCH ×2 (09:56→16:51)
--- NOTE | 2018-08-29 11:02 | ULT ---
ULTRASOUND WITH DOPPLER DUPLEX VENOUS LOWER EXTREMITY BILATERAL CPT: 27006 ICD-10-PCS: B54D HISTORY: Bilateral lower extremity edema. Pulmonary embolus. TECHNIQUE: Color flow Doppler, spectral waveform analysis of pulsed Doppler, and olsen-scale imaging with luh luis a and augmentation, were used to evaluate the bilateral common femoral, femoral, popliteal, mailer apprentice ior tibial, and superficial femoral, veins; and the proximal portions of the profunda femoral and gre ater saphenous, veins. FINDINGS: There is appropriate compressibility and flow within the venous system of each lower extremity withou t evidence of DVT. IMPRESSION: No DVT of the visualized bilateral lower extremities. POS: [facility]
[2018-08-29 12:50] VITALS: BP 112/73
--- NOTE | 2018-08-29 17:07 | DIS ---
DATE OF ADMISSION: 08/28/2018 DATE OF DISCHARGE: 08/29/2018 DISCHARGE DIAGNOSES: 1. Extensive saddle pulmonary embolus. 2. Acute dyspnea secondary to #1. 3. Sick sinus syndrome, status post pacemaker placement. 4. Chronic systolic congestive heart failure with ejection fraction of 35% to 40% by 2D transthoracic echocardiogram on 08/06/2018. 5. Hyponatremia. CONSULTATIONS: Dr. Garcia with Pulmonology Critical Care Service. PERTINENT LABORATORY DATA AND X-RAY FINDINGS: Sodium ranged between 125 to 126, creatinine ranged between 0.83 to 0.96. Estimated GFR ranged between 74 to 88. Troponin-I negative x2. CBC showed hemoglobin ranged between 11.2 to 12.7, and platelet count ranged between 150 to 179. PT 17.4, INR 1.4, PTT 41.9. CT angiogram of the chest dated on 08/28/2018 showed extensive internal pulmonary artery thrombosis including the main pulmonary artery and right and left main pulmonary arteries with progression, left greater than right since prior CT imaging on 08/05/2018. Bilateral lower extremity venous Doppler study dated on 08/29/2018 showed no evidence for deep venous thrombosis. HOSPITAL COURSE: The patient was admitted to the intermediate care unit after initially presenting with increased dyspnea and fatigue. The patient's history significant for recent saddle pulmonary embolus diagnosis, with admission on 08/05 through 08/10, status post tPA therapy, discharged to home with Eliquis 10 mg b.i.d., followed by 5 mg b.i.d., returning to the hospital with increased fatigue and dyspnea. CT angiogram showed progression of clot burden in the left main pulmonary artery with extensive clot burden as stated previously. The patient was placed on heparin infusion and evaluated by the Pulmonology Service. The patient received general pulmonary support and monitored on telemetry unit in the intermediate care unit. Due to the patient's extensive clot burden, the patient was deemed an appropriate candidate for transfer to higher level of care to consider catheter mediated tPA versus thrombectomy. The patient has been approved for transfer to [facility] in [place], [place] for higher level of care and management. I have examined the patient the time of discharge with stable vital signs, currently noted with O2 saturations 100% on 2 L/minute by nasal cannula. The patient agreeable for transfer on 08/29/2018. DISCHARGE MEDICATIONS: 1. Enteric-coated aspirin 81 mg p.o. q.48 hours. 2. Zyrtec 10 mg p.o. daily. 3. Levothyroxine 88 mcg p.o. daily. 4. Multivitamin 1 tablet p.o. daily. 5. Crestor 5 mg p.o. at bedtime. 6. Coenzyme Q10, 400 mg p.o. daily. 7. Coreg 3.125 mg p.o. b.i.d. 8. Heparin infusion. FOLLOWUP: The patient may follow up at [facility] in [place], [place] with Pulmonology Service. The patient may follow up with his primary care provider, Dr. Cash Price after discharge from [facility]. CONDITION ON DISCHARGE: Guarded. ACTIVITY: Bedrest. DIET: [employer]. CODE STATUS: Full. DISPOSITION: Transfer to [place], [place], 08/29/2018. Job ID: [id number]
[2018-08-29] MEDS ORDERED: Rosuvastatin 5 MG TAB PO SCH (21:00)
== END 2018-08-29 17:30 | disposition short-term general hospital (02) | DRG 176 ==
LOC: ERS 21:23 → IMCU/EMU 22:40
PROVIDERS: ADMIT Internal Medicine Infectious Disease; ATTEND Internal Medicine Infectious Disease
DX: I26.92 Saddle embolus of pulmonary artery without acute cor pulmonale (principal); I50.22 Chronic systolic (congestive) heart failure; E87.1 Hypo-osmolality and hyponatremia; E03.9 Hypothyroidism, unspecified; E78.5 Hyperlipidemia, unspecified; Z95.0 Presence of cardiac pacemaker; Z79.01 Long term (current) use of anticoagulants; Z79.82 Long term (current) use of aspirin; Z79.899 Other long term (current) drug therapy
CPT/HCPCS: 36415; 71045; 71275; 80048; 80053; 82550; 84484; 85014; 85018; 85025; 85049; 85610; 85730; 93005; 93010; 93970; 96365; 96375; J1644

== ENCOUNTER 2018-11-13 12:02 | Outpatient (CLI) | payer MEDICARE, BC ==
[~2018-11-13 12:02] MED LIST changes: +Iopamidol 370 76% 100 ML VIAL ONE; -Lidocaine 1% w/Epinephrine 1:100K 30 ML VIAL ONE
--- NOTE | 2018-11-13 13:04 | CT ---
CONTRAST ENHANCED CTA CHEST: TECHNIQUE: Contrast-enhanced CTA of the chest is performed. IV contrast was given. Two-D and 3D reconstructed images performed. COMPARISON: Comparison is made to a previous exam from 08/28/2018. FINDINGS: CTA images chest demonstrate extensive thrombus filling the right and left pulmonary arteries. Some contrast is seen flowing distally, especially into the left lung. Some flow is seen extending into t he right lower lobe. Clot is also seen extending into the right middle lobe pulmonary artery. Clot is also seen extending into the right upper lobe pulmonary artery. The size and extent of the clot h as not significantly changed. IMPRESSION: Extensive right lung filling defect is seen in the pulmonary arteries filling much of the right upper lobe, right middle lobe, and right lower lobe pulmonary arteries. This has not significantly change d since the previous comparison CTA. Additional clot is seen in the left main pulmonary artery and d istal aspect of the main pulmonary outflow tract. Findings called to Dr. Tan at 12:46 p.m. on 11/13/2018. CODE CR POS: [facility]
== END 2018-11-13 12:03 | disposition home or self-care (01) ==
LOC: CT 12:02
PROVIDERS: ATTEND Internal Medicine
DX: I26.99 Other pulmonary embolism without acute cor pulmonale (principal); I08.8 Other rheumatic multiple valve diseases; Z95.810 Presence of automatic (implantable) cardiac defibrillator
CPT/HCPCS: 71275; 82565; 93306; Q9967

== ENCOUNTER 2019-03-24 09:41 | Inpatient (IN) | payer MEDICARE, BC ==
[2019-03-24] MEDS ORDERED: Morphine 4 MG/ML VIAL ONE (10:48)
[2019-03-24] MEDS ORDERED: Morphine 2 MG/ML SYRINGE ONE ×2 (10:49→11:04)
[2019-03-24 11:06] LABS: #Eosinphils 0.1 thou/uL (0.0-0.7); #Lymphocytes 1.1 thou/uL (1.20-3.40); #Monocytes 0.6 thou/uL (0.11-0.59); %Basophils 0.3 % (0.0-1.0); %Eosinophils 1.4 % (0.0-10.0); %Lymphocytes 14.1 % (21.0-51.0); %Neutrophils 76.3 % (42.0-75.0); Hemoglobin 8.9 g/dL (14.0-18.0); Mean Corpuscular Hemoglobin 24.8 pg (27.0-31.0); Mean Corpuscular Volume 77.5 fL (78.0-98.0); Mean Platelet Volume 6.4 fL (7.4-10.4); Platelet Count 347 thou/uL (130-400); RBC Distribution Width 18.4 % (11.5-14.5); Red Blood Cell (RBC) Count 3.57 mill/uL (4.70-6.10); White Blood Cell (WBC) Count 7.9 thou/uL (4.8-10.8)
--- NOTE | 2019-03-24 11:09 | CT ---
CT LUMBAR SPINE WITHOUT CONTRAST: INDICATIONS: History of fall with back pain COMPARISON: CTA of the thorax dated November 03, 2018 TECHNIQUE: Multiple CT images were obtained of the lumbar spine without contrast. Axial, coronal, and sagittal r eformatted images were constructed from the raw data. FINDINGS: Visualized retroperitoneal and paravertebral soft tissues: There is an exophytic cyst off the superio r pole of the right kidney. Spinal alignment: Within normal limits. Spinal instrumentation or postsurgical change: None At L5-S1, there is moderate bilateral osseous neural foraminal narrowing due to a disc osteophyte com plex and facet hypertrophy.. At L4-5, there is mild bilateral osseous neural foraminal narrowing, right greater than left. At L3-4, there is a mild left neural foraminal narrowing due to an asymmetric disc bulge and facet hy pertrophy. At L2-3, there is a broad-based bulge with facet hypertrophy inducing mild bilateral neural foraminal narrowing At L1-L2, there is a lytic lesion involving the left posterior aspect of L2 with extraosseous extensi on into the spinal canal causing moderate central canal narrowing. The lesion measures 2.4 x 2 cm. There is pathologic fracture involving the lateral body of L2. There is a broad-based disc bulge at L 1-L2 inducing mild left neural foraminal narrowing At T12-L1, there is a central lucent lesion within L1 measuring 2.3 x 2.3 cm inducing moderate superi or endplate wedge compression fracture of L1. There is no appreciable central canal or neural foraminal narrowing IMPRESSION: 1. 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 There is extraosseous spread o f soft tissue seen involving the left posterior aspect of the L2 vertebra within the spinal canal causing at least moderate central canal narrowing. Follow-up MRI of the lumbar spine with and without contrast is recommended for improved the tip detail of the extraosseous involvement. 2. Multilevel spondylosis of the lumbar spine.
--- NOTE | 2019-03-24 11:09 | RAD ---
AP view of the pelvis INDICATION: Fall with back pain COMPARISON: None. FINDINGS: Bones: No acute fracture or subluxation is evident. Bone mineralization appears within normal limits. Hips: Mild hip osteoarthrosis SI joints and symphysis pubis: Mild SI joint degenerative change Intrapelvic contents: Small phleboliths. IMPRESSION: No acute osseous abnormality.
[2019-03-24 11:25] LABS: ALT (SGPT) 22 U/L (8-55); AST (SGOT) 18 U/L (5-34); Albumin 3.3 g/dL (3.4-4.8); Alkaline Phosphatase 89 U/L (40-150); Anion Gap 14 mmol/L (10-20); BUN (Urea Nitrogen) 20 mg/dL (8.4-25.7); Bilirubin, Total 0.4 mg/dL (0.2-1.2); Calc. Creatinine Clearance 0 mL/min (70-130); Calcium 9.3 mg/dL (7.8-10.44); Carbon Dioxide 25 mmol/L (23-31); Chloride 94 mmol/L (98-107); Estimated GFR-MDRD 76; Globulin 3.2 g/dL (2.4-3.5); Glucose 98 mg/dL (83-110); Potassium 3.7 mmol/L (3.5-5.1); Protein, Total 6.5 g/dL (5.8-8.1); Sodium 129 mmol/L (136-145)
[2019-03-24] MEDS ORDERED: ISOVUE-370 76%-LOCM 1 ML ONE (12:03)
[2019-03-24 13:18] LABS: Bilirubin Negative (Negative); Blood, Urine Negative (Negative); Clarity Clear (Clear); Glucose, Urine (Dipstick) Normal (Negative); Leukocyte Negative Leu/uL (Negative); Nitrite Negative (Negative); Protein, Urine (Dipstick) Negative (Neg-Trace); Urobilinogen Normal mg/dL (Less than 2)
[2019-03-24] MEDS ORDERED: Guaifenesin DM 100-10/5 ML UDCUP PO PRN (13:23)
[2019-03-24] MEDS ORDERED: Bisacodyl 10 MG SUPP PR PRN (13:23)
[2019-03-24] MEDS ORDERED: Acetaminophen 325 MG TAB PO PRN (13:23)
[2019-03-24] MEDS ORDERED: Senokot S 8.6-50 MG TAB PO PRN (13:23)
--- NOTE | 2019-03-24 14:11 | HP ---
REASON FOR ADMISSION: Pathologic fracture of L1-2 with severe back pain, moderate dehydration. HISTORY OF PRESENTING ILLNESS: The patient gives history of having back pain for last 3 weeks. This just got worse from this morning. He was unable to get up or walk. He was unable to turn to any side. He could not get up from chair. All of this prompted him to come to the emergency room. Three weeks back when the pain started, he had gone to see a chiropractor. He had a plain x-ray done and was told he had a L1 fracture and he could not fix it. The patient also had left sacroiliac joint pain as well then. 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 He had two lesions and a satellite lesion as well. He apparently will need radiation to the area per his asbestos shingle inspector, Dr. Bethanie Henriquez at [facility]. He has also seen Dr. Tom, plastic surgeon there. Mr. Greco also mentions that he has had a pulmonary artery stent placed on 03/05/[address] [facility] for CTEP with history of pulmonary embolus. PAST MEDICAL AND SURGICAL HISTORY: Hypertension; history of PE; dyslipidemia; prior history of pacemaker; hernia repair; malignant scalp tumor, removed three weeks back; pulmonary artery stenting done on 03/05/2019 at [facility]; and pulmonary artery hypertension, on Adempas and sildenafil. CURRENT MEDICATIONS: The patient is on, 1. Levothyroxine 88 mcg p.o. daily. 2. Crestor 5 mg p.o. daily. 3. Eliquis 5 mg p.o. twice daily. 4. Plavix 75 mg p.o. daily. 5. Ferrous sulfate 65 mg twice daily. 6. Bumetanide 1 mg p.o. daily. 7. CoQ10 of 400 mg p.o. daily. 8. Folic acid 5 mg p.o. daily. 9. Sildenafil 20 mg three times daily. 10. Adempas 2 mg three times daily. ALLERGIES: NO KNOWN DRUG ALLERGIES. PERSONAL HISTORY: Does not abuse alcohol or drugs. No history of smoking. FAMILY HISTORY: Mother in her 90s from old age and natural causes. Father in his 70s, was a smoker as well. CODE STATUS: Full. Power of commercial attorney is his . The patient has a living will. He is to his for nearly 57 years now. REVIEW OF SYSTEMS: CONSTITUTIONAL: Negative for weight loss or gain, ability to conduct usual activities. SKIN: Negative for rash, itching. EYES: Negative for double vision, pain. ENT/MOUTH: Negative for nose bleeding, neck stiffness, pain, tenderness. CARDIOVASCULAR: Negative for palpitations, dyspnea on exertion, orthopnea. RESPIRATORY: Negative for shortness of breath, wheezing, cough, hemoptysis, fever or night sweats. GASTROINTESTINAL: Negative for poor appetite, abdominal pain, heartburn, nausea , vomiting, constipation, or diarrhea. GENITOURINARY: Negative for urgency, frequency, dysuria, nocturia. MUSCULOSKELETAL: Negative for pain, swelling. NEUROLOGIC/PSYCHIATRIC: Negative for anxiety, depression. ALLERGY/IMMUNOLOGIC: Negative for skin rash, bleeding tendency. PHYSICAL EXAMINATION: GENERAL: The patient is an 88-year-old male, who is currently in mild back pain. He states morphine has helped him on arrival. Initial pain was 10/10 in intensity. VITAL SIGNS: Blood pressure 130/62, pulse 74 per minute, respiratory rate 18 per minute, temperature 98.2 degrees Fahrenheit, and saturating 95% on 2 L nasal cannula. NECK: Supple. Elevated JVD. HEENT: Eyes; extraocular muscles intact. Pupils reacting to light. Oral cavity, mucous membranes are moist. No exudates or congestion. CARDIOVASCULAR: S1 and S2 heard. Regular rhythm. RESPIRATORY: Air entry 1+ bilateral. No rales or rhonchi. ABDOMEN: Soft. Bowel sounds heard. No tenderness, rigidity, or guarding. EXTREMITIES: No peripheral edema or calf tenderness. VASCULAR: Peripheral pulses 1+ bilateral. No ischemic ulcerations or gangrene. CENTRAL NERVOUS SYSTEM: No gross focal deficits noted. The patient is alert, awake, oriented well. PSYCHIATRIC: The patient's mood is euthymic. No hallucinations or delusions. LABORATORY DATA: Pelvic x-ray done shows no acute osseous abnormality. CT lumbar spine without contrast done shows osseous metastatic disease with pathologic fracture of L1 and L2. There is moderate central canal narrowing at L2 vertebral level. Multilevel spondylosis of the lumbar spine is seen. CRP 8.4, albumin 3.3, BUN 20, creatinine 0.9, glucose 98. Liver enzymes within normal limits. Sodium 129, chloride 94, bicarb 25. White count of 8, H and H of 9 and 27, platelet count 347 with 76% neutrophils, MCV is 77. CLINICAL IMPRESSION AND PLAN: The patient will be admitted to medical floor for severe back pain with pathologic fracture of L1-2. It is unclear about his primary malignancy with vertebral metastasis showing lytic lesion. The patient has a pacemaker and cannot obtain MRI. He will be on morphine p.r.n., Motrin 3 times daily for pain. We will hold his Eliquis in view of possible intervention by Neurosurgery to stabilize if needed. I have spoken to Dr. Hudson's PA for Neurosurgery consultation. The patient has had recent diagnosis of skin cancer with removal over his scalp x2 and we will ascertain the exact nature of the cancer. Mr. Greco also has moderate dehydration and will be on 80 mL of normal saline per hour. We will continue Plavix, Crestor, levothyroxine, CoQ10 as before. PT/OT evaluations will be requested. He is in a TLSO brace, which was placed here in the ER. Job ID: [id number] MTDD
[2019-03-24 14:20] LABS: PSA-Asymptomatic (SCREENING) 2.32 ng/mL (0-4.0)
[2019-03-24 14:50] LABS: CEA, Serum 0.81 ng/mL (< or = 5.0)
--- NOTE | 2019-03-24 17:29 | CT ---
CT chest with IV contrast CT abdomen and pelvis with IV contrast CT thoracic spine noncontrast HISTORY: Pathologic fracture lumbar spine. Metastatic disease suspected. Pulmonary embolus. COMPARISON: CT lumbar spine 03/24/2019. CT arteriogram chest 11/13/2018. FINDINGS: There is rightward shift of the mediastinum. Large pulmonary emboli involving the pulmonary outflow tract, nearly completely occluding the right main pulmonary artery and extending into the left pulmonary arterial system are again demonstrated. There may have been minimal improvement to the left upper lobe. Metallic stent is now in place in the right pulmonary artery. Extensive central lobular low-density present throughout the right lung with multiple small lobular areas of contrast h aving the appearance of pseudoaneurysms. Significant atelectasis of the right lung. Atelectasis at the left posterior lung base with small amount left pleural fluid. A 1.1 cm noncalcified nodule is pr esent within the left lung apex. There is a 0.7 cm subpleural nodule in the anterior aspect of the right upper lobe. Comminuted mildly displaced left posterior 10th rib fracture. The liver, spleen, kidneys, adrenal glands, and pancreas are within normal limits. Large amount of or al contrast material refluxes into the esophagus. Large amount of stool throughout the colon. Urinary bladder is decompressed. Prominent degenerative changes of the thoracic spine. No destructive lesions are apparent. Compressio n fractures of L1 and L2 are again demonstrated. IMPRESSION: No reliable evidence of primary neoplasm or widespread metastatic disease. There are very small bilateral upper lobe nodules that have appeared since the prior study. The largest is at the left upper lobe, 1.1 cm. Large central area of masslike abnormality involving the right lung, in the setting of severe pulmona ry emboli, more likely represents necrotic lung with multiple pseudoaneurysms than large neoplastic mass. The severe bilateral pulmonary emboli are again demonstrated. Possible minimal improvement of the lef t upper lobe. Pathologic-appearing L1 and L2 compression fractures. Better detailed on recent CT lumbar spine. Small bilateral pleural effusions. Left posterior 10th rib fracture, acute. Does not appear pathologic. Large amount of gastroesophageal reflux. Constipation.
[2019-03-24] MEDS: Sodium Chloride 0.9% 1,000 ML IV SCH (17:37)
[2019-03-24] MEDS: Ibuprofen 200 MG TAB PO SCH ×2 (17:55→21:02)
[2019-03-24] MEDS: Morphine 2 MG/ML SYRINGE SLOW IVP PRN (18:13)
[2019-03-24] MEDS: Rosuvastatin 5 MG TAB PO SCH (21:02)
[2019-03-24] MEDS: Famotidine 20 MG TAB PO SCH (21:02)
[2019-03-24] MEDS: Senokot S 8.6-50 MG TAB PO SCH (21:02)
[2019-03-25] MEDS: Sodium Chloride 0.9% 1,000 ML IV SCH ×2 (02:00→05:16)
[2019-03-25 04:44] LABS: #Eosinphils 0.2 thou/uL (0.0-0.7); #Monocytes 0.7 thou/uL (0.11-0.59); #Neutrophils 4.3 thou/uL (1.40-6.50); %Basophils 0.5 % (0.0-1.0); %Eosinophils 3.8 % (0.0-10.0); %Lymphocytes 15.7 % (21.0-51.0); %Monocytes 10.8 % (0.0-10.0); %Neutrophils 69.3 % (42.0-75.0); Hemoglobin 7.4 g/dL (14.0-18.0); Mean Corpuscular HGB CONC 31.9 g/dL (32.0-36.0); Mean Corpuscular Hemoglobin 24.9 pg (27.0-31.0); Mean Corpuscular Volume 78.3 fL (78.0-98.0); Platelet Count 283 thou/uL (130-400); RBC Distribution Width 18.5 % (11.5-14.5); Red Blood Cell (RBC) Count 2.96 mill/uL (4.70-6.10); White Blood Cell (WBC) Count 6.2 thou/uL (4.8-10.8)
[2019-03-25 05:04] LABS: Anion Gap 12 mmol/L (10-20); BUN (Urea Nitrogen) 15 mg/dL (8.4-25.7); Calc. Creatinine Clearance 55 mL/min (70-130); Calcium 8.4 mg/dL (7.8-10.44); Carbon Dioxide 24 mmol/L (23-31); Chloride 97 mmol/L (98-107); Estimated GFR-MDRD 89; Glucose 84 mg/dL (83-110); Potassium 3.7 mmol/L (3.5-5.1); Sodium 129 mmol/L (136-145)
[2019-03-25] MEDS: Levothyroxine Sodium 88 MCG TAB PO SCH (05:15)
[2019-03-25] MEDS: Ibuprofen 200 MG TAB PO SCH ×3 (08:27→20:41)
[2019-03-25] MEDS: Senokot S 8.6-50 MG TAB PO SCH ×2 (08:28→20:41)
[2019-03-25] MEDS: Famotidine 20 MG TAB PO SCH ×2 (08:29→20:42)
[2019-03-25] MEDS: Ubidecarenone 50 MG CAP PO SCH ×2 (08:29→10:25)
[2019-03-25] MEDS: Polyethylene Glycol 3350 17 GM Packet PO SCH (08:32)
[2019-03-25] MEDS: traMADol HCl 50 MG TAB PO PRN ×2 (10:23→16:00)
--- NOTE | 2019-03-25 13:44 | PDOC.HOSPP ---
- Subjective Subjective: pain is better has ambulated a bit with PT in hallway no nausea or sob (got the chest piece/support removed from tslo brace) - Objective Vital Signs & Weight: Vital Signs (12 hours) Temp Pulse Resp BP BP Pulse Ox 03/25/19 11:34 97.5 F L 71 18 90/48 L 91 L 03/25/19 07:57 97.9 F 61 16 99/49 L 94 L 03/25/19 04:22 98.3 F 75 16 115/53 L 95 Weight Weight 135 lb I&O: 03/24/19 03/25/19 03/26/19 06:59 06:59 06:59 Intake Total 520 Output Total 275 Balance 245 Result Diagrams: 03/25/19 04:22 03/25/19 04:22 ROS - Review of Systems All systems: All other ROS were reviewed and found negative. - Medication Medications: Active Medications Generic Name Dose Route Start Last Admin Trade Name Freq PRN Reason Stop Dose Admin Coenzyme Q10 400 mg 03/25/19 09:00 03/25/19 10:25 Coenzyme Q10 PO Not Given DAILY TRACY Famotidine 20 mg 03/24/19 21:00 03/25/19 08:29 Pepcid PO 20 mg BID TRACY Administration Sodium Chloride 1,000 mls @ 80 mls/hr 03/24/19 13:30 03/25/19 05:16 Normal Saline 0.9% IV 03/25/19 14:29 1,000 mls .[id number] TRACY Administration Ibuprofen 400 mg 03/24/19 15:00 03/25/19 08:27 Motrin PO 400 mg TID TRACY Administration Levothyroxine Sodium 88 mcg 03/25/19 06:00 03/25/19 05:15 Synthroid PO 88 mcg 0600 TRACY Administration Morphine Sulfate 2 mg 03/24/19 13:27 03/24/19 18:13 Morphine SLOW IVP 2 mg Q4H PRN Administration Pain Polyethylene Glycol 17 gm 03/25/19 09:00 03/25/19 08:32 Miralax PO Not Given DAILY TRACY Rosuvastatin Calcium 5 mg 03/24/19 21:00 03/24/19 21:02 Crestor PO 5 mg QPM TRACY Administration Senna/Docusate Sodium 2 tab 03/24/19 21:00 03/25/19 08:28 Senokot S PO Not Given BID TRACY Sodium Chloride 10 ml 03/24/19 21:00 03/25/19 08:30 Flush - Normal Saline IVF Not Given Q12HR TRACY Tramadol HCl 50 mg 03/24/19 13:23 03/25/19 10:23 Ultram PO 50 mg Q6H PRN Administration Pain - Exam NAD, awake alert Eye: PERRL, anicteric sclera ENT: no oropharyngeal lesions, moist mucosa Neck: supple, no JVD Heart: RRR, no murmur Respiratory: no wheezes, rhonchi Gastrointestinal: soft, non-tender, normal bowel sounds Extremities: no cyanosis, no edema Neurological: CN's grossly intact, no focal deficits Psychiatric: normal affect, A&O x 3 Hosp A/P (1) L1, 2 lytic lesion with fracture and com Status: Acute (2) History of pulmonary embolus (PE) Code(s): Z86.711 - PERSONAL HISTORY OF PULMONARY EMBOLISM Status: Chronic (3) PNA (pneumonia) Code(s): J18.9 - PNEUMONIA, UNSPECIFIED ORGANISM Status: Suspected Qualifiers: Pneumonia type: due to unspecified organism (4) Status post pulmonary artery branches stent placement Code(s): Z98.890 - OTHER SPECIFIED POSTPROCEDURAL STATES Status: Acute Plan: 2 weeks back at [facility] (5) Pulmonary hypertension Code(s): I27.20 - PULMONARY HYPERTENSION, UNSPECIFIED Status: Chronic (6) Chronic systolic (congestive) heart failure Code(s): I50.22 - CHRONIC SYSTOLIC (CONGESTIVE) HEART FAILURE Status: Chronic (7) HLD (hyperlipidemia) Code(s): E78.5 - HYPERLIPIDEMIA, UNSPECIFIED Status: Chronic Qualifiers: Hyperlipidemia type: unspecified Qualified Code(s): E78.5 - Hyperlipidemia , unspecified - Plan to restart eliquis 24hrs after bone biopsy continue plavix for pulm stent d/w Dt.Britney Knox and Amparo will have L1, 2 area bone biopsy for diagnosing primary malignancy radiation treatment per 's adv has new parenchymal changes in right lung, await 's opinion pt is 88 yrs but cognitively intact and had good functional status 4 days back continue pulm htn meds, will start cefipime, levaquin for ?pna, no clinical symptoms yet nebs prn dc planning to rehab once w/u is complete
--- NOTE | 2019-03-25 15:33 | CON ---
DATE OF CONSULTATION: 03/25/2019 REASON FOR CONSULTATION: Mr. Greco is an 88-year-old gentleman with possible metastatic malignancy to the L1/L2 vertebral body. I was asked to see him to discuss treatment options. HISTORY OF PRESENT ILLNESS: Mr. Greco is known to me. He is an 88-year-old gentleman, who has had a fairly complicated medical history in the past year. 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 Before he could have surgical resection of the scalp lesion, he developed significant pulmonary embolism. He has been in the hospital on multiple occasions for this. He did require transferred to [facility] in [place], where he had endoscopic removal of his blood clot and ultimately had a stent placed. In early November 2018, he underwent a wide excision with flap reconstruction by Dr. Tom at [facility]. Surgical margins were negative. 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 He did well until sometime in January when he noticed a new nodule that Dr. Tom describes being several centimeters away from his previous lesion and previous surgical excision. 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 I subsequently saw him and discussed with him the option of a reexcision given that his deep surgical margin was positive followed by radiation therapy. He reports that he had reexcision done; although, I do not have the reports of that. He also informs me that Dr. Tom was discussing this with a surgeon in [place] to consider whether he should have an additional surgery. Over the past 3 weeks, the patient states that he began developing back pain, which was increasing. In the last several days, he had difficulty getting out of bed and subsequently an ambulance was called and brought him to the emergency room. He reports that the pain is in the lower back/sacroiliac joint area. He then had a CT scan of the lumbar spine, which was interpreted as a lytic lesion involving the L1 and L2 vertebral bodies with a pathological fracture with possible impingement on the cord/canal at L2. An MRI was recommended. He could not have an MRI because of his pacemaker. He did undergo a CT scan of the chest, abdomen, and pelvis, which showed changes in the lung that were felt by Radiology to be consistent with necrotic lung from his pulmonary emboli, which were quite extensive and still visible. It was felt that the malignancy in the lung with a lot less likely. He has had blood work, which so far has been unremarkable for malignancy. Subsequently, I have been asked to see him to discuss his options for treatment and diagnosis. The patient does report some weakness in his legs. The weakness has been going on for quite some time, although he feels that his legs are weaker than a month ago. He denies any numbness in the legs and has no bowel or bladder difficulties. He does report that he got up several days ago and had a fall, which left him with some left-sided rib soreness. Otherwise, he has no pain. His breathing has been stable. When he lies down, he does get some occasional coughing spells, although he feels the coughing spells are improved compared to several months ago. He does have occasional production of mucus as well as some rare hemoptysis. He sleeps with the head of bed elevated. He denies any enlarged lymph nodes in the neck and voices no other complaints. PAST MEDICAL HISTORY: 1. 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 2. Pulmonary embolism as mentioned above. 3. Status post pacemaker placement. 4. Hypothyroidism. 5. Hypercholesterolemia. 6. Status post pacemaker placement. 7. Status post bilateral inguinal hernia repair. MEDICATIONS: 1. Dulcolax p.r.n. 2. Pepcid. 3. Robitussin DM. 4. Motrin. 5. Synthroid. 6. Morphine p.r.n. 7. MiraLAX. 8. Crestor. 9. Senokot S. 10. Tramadol p.r.n. He was on Plavix, Eliquis, Revatio, Adempas, and bumetanide as an outpatient. ALLERGIES: NO KNOWN MEDICAL ALLERGIES. SOCIAL HISTORY: He has no cigarette use. He does drink an occasional glass of wine. He lives with his in [place], [place]. Up until July, he was very active as a golfer, but now has minimal activity. FAMILY HISTORY: His mother at age 89 from complications of a broken hip. His father age at 77 from COPD. There is no family history of malignancy. REVIEW OF SYSTEMS: A 12-point review of systems is otherwise negative. PHYSICAL EXAMINATION: VITAL SIGNS: Height is 6 feet, weight is 135 pounds. Blood pressure was 90/48, pulse is 71, respirations are 18, temperature is 97.5, O2 saturation is 91% on 2 L O2. CONSTITUTIONAL: He is alert and oriented and in no apparent distress. He is chronically ill in appearance. Karnofsky performance status is a 70%. HEENT: Eyes; pupils equal, round, and reactive to light. Extraocular movements are intact. ENT; oral cavity and oropharynx revealed no lesion or erythema. Palate elevates symmetrically. Gingiva is intact. NECK: Supple without cervical or supraclavicular adenopathy. No thyromegaly. Larynx midline. LUNGS: Breathing nonlabored. Clear to auscultation and percussion. CARDIOVASCULAR: Heart, regular rate and rhythm without murmur. Mild bilateral pedal edema. BACK: Reveals the subjective area of tenderness to be in the sacroiliac joint region. He denies any tenderness over the L1 and L2 region. LYMPHATIC: No axillary or inguinal adenopathy. ABDOMEN: Soft, nontender, and nondistended without mass or hepatosplenomegaly. Liver percusses to normal size. SKIN: Without rash or purpura. Skin over the scalp was reviewed. He does have a small area that is raised from his recent surgery. His scar from his wide local excision is well healed. No definite recurrent lesion was identified. NEUROLOGIC: Cranial nerves 2 through 12 grossly intact. Motor strength is 5/5 in both upper and lower extremities in all muscle groups tested. Reflexes are normal and symmetrical. Gait is not tested. 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 His chemistry group revealed a sodium of 129. Creatinine was normal. Liver function tests were normal. His CBC revealed a white blood cell count of 6200 with hemoglobin 7.4, hematocrit 23.2, platelet count 283,000. Total protein is normal at 6.5 with an albumin of 3.3. Alkaline phosphatase was normal. PSA was 2.32 and CEA was 0.81. ESR was elevated at 105, and his C-reactive protein was elevated at 8.45. RADIOLOGIC DATA: CT scan of the lumbar spine as well as CT scan of the chest, abdomen, and pelvis were all personally reviewed. The lumbar spine shows changes at the L1 and L2 vertebral bodies. There are compression fractures. There is possible lytic lesion involving L1 and L2 with some impingement on the canal at L2. CT of the chest, abdomen, and pelvis revealed extensive changes in the lung with a large clot consistent with pulmonary embolism. There were multiple pulmonary nodules. He had a stent in the right pulmonary artery. It was felt that this more likely represented a necrotic lung with multiple pseudoaneurysms rather than a large neoplastic mass. There was no evidence of liver metastasis or other areas of metastasis. He had a fracture of the left posterior 10th rib. ASSESSMENT: Mr. 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 He also reports that the pain is much lower than the L1 and L2 area, so his side of pain does not exactly match with the CT scan findings. PLAN: I had a long discussion with Mr. Greco regarding his diagnosis, prognosis, prognostic factors, treatment options. The concern is for possible malignancy involving the L1 and L2 vertebral bodies, although other things can be in the differential. Acute compression fractures or infection can look like metastatic malignancy. He does not have any evidence of infection. Thus far, workup for malignancy has been negative. His scalp lesion is unlikely to be the source of metastasis if this was to be malignancy. Interestingly, his pain is improved since his hospitalization, and the only thing that has been done is he has been placed in a back brace. Workup for myeloma is still pending, but likely this is going to be negative with his normal total protein. He could have a localized plasmacytoma. We are in a very difficult situation. I think that an acute compression fracture can look similar to malignancy by findings. Unfortunately, he cannot have an MRI because of his pacemaker. Really the only thing that we can do to rule out malignancy is to perform a biopsy on the lumbar spine and even a possible kyphoplasty with his compression fractures. He has seen Neurosurgery, did not favor neurosurgical intervention. I did speak with the hospitalist and he is going to discuss whether biopsy is possible with Radiology. If he does not have a biopsy, then that is going to affect our decisions. It would be very difficult to give him radiation therapy to the lumbar spine without biopsy-proven malignancy. The hospitalist was also going to ask Dr. Tan to see the patient to look at the CT scans to see if he was concerned about a possible pulmonary source for malignancy, although again I think infarction is more likely given his history. Therefore, we have nothing else that could be biopsied except the L1 and L2 vertebral bodies. If he cannot have a biopsy, I would not favor just prophylactically radiating the L1 and L2 vertebral body without tissue diagnosis. This is especially true since this may all just be related to compression fractures rather than malignancies. I did explain to Mr. Greco that if this were to be malignancy in the back, then radiation would typically be the treatment of choice. I explained that radiation can reduce the pain and help prevent neurological compromise from expanding tumor. I explained to him that if it were malignancy that ultimately this could result in paralysis without treatment. Nevertheless, I also explained to him the importance of proving that this is malignant before initiating any treatment. The patient does inform me that he consider going to a chiropractor. I informed him that having an adjustment would not be recommended given his compression fractures in his spine. I will follow him with you. We will await the results of his serum protein electrophoresis to see if myeloma is a possibility. If he cannot have a biopsy, then we will have to make decisions after that. If he cannot have a biopsy, then we would like to proceed that way. In regard to his scalp lesion, I would discuss with Dr. Tom. Any treatment with radiation for the scalp lesion is currently on hold until we resolve his issue with his back. Thank you for this interesting consultation. Job ID: [id number]
--- NOTE | 2019-03-25 15:38 | CON ---
DATE OF CONSULTATION: This is Albert Navarro PA-C dictating a report for Eligio Hudson MD. This is a 50-minute initial patient evaluation of which greater than 50% of the exam was spent in counseling and coordinating the patient's care. Remainder of the exam was spent in review of the patient's medical records and review of appropriate imaging studies. CHIEF COMPLAINT: Progressive worsening of low back pain over the past 3 weeks, worse over the past 1 day. HISTORY OF PRESENT ILLNESS: Mr. Greco is a pleasant 88-year-old male, who presents to [facility] for the above complaints. Apparently, the patient has quite significant comorbidities including multiple recurrent pulmonary embolism, on Eliquis and Plavix and increased pulmonary hypertension requiring stent placed roughly 3 weeks ago. 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 The patient also has a pacemaker in place and has history of being on 81 mg aspirin. Nonetheless, given his progressive back pain, a lumbar spine CT was obtained that shows an L1 burst fracture and lytic lesions present in L2 vertebral body. The patient states that normally he is very high functioning and has no leg pain. Falls are not normal for him. He understands he is a poor surgical candidate given his significant pulmonary issues. His is at bedside. PHYSICAL EXAMINATION: NEUROLOGIC: The patient is awake, alert, and appropriate. GCS is 15. He really does have good strength in all the extremities, especially into bilateral lower extremities with intact sensation to light touch throughout. He is wearing a modified TLSO brace. He states he is extremely uncomfortable and honestly makes it hard for him to breathe as it is hitting his neck. He does not appear to be in any acute distress. IMPRESSION AND DIAGNOSES: 1. Progressive worsening of low back pain with L1 burst fracture and L2 lytic lesions consistent with pathologic fracture. 2. Pulmonary hypertension and history of pulmonary embolism, on multi anticoagulants. 3. History of recent pulmonary artery stenting at an outside institution. 4. History of spindle cell neoplasm consistent with fibroxanthoma. PLAN: I have discussed the patient's case and imaging with Dr. Hudson. At this time again, the patient is a poor surgical candidate and I have discussed this in great detail with both the patient and his . I would like him to continue to wear his LSO brace anytime he is out of bed, but I will order a clamshell TLSO brace. This likely will be more comfortable for him and help with his breathing difficulties. We will likely schedule followup to continue to conservatively manage his lumbar spine fractures. The patient's was appreciative of the workup and will call with questions or concerns. Otherwise, we will schedule outpatient followup. Job ID: [id number]
[2019-03-25] MEDS: Sildenafil Citrate 20 MG TAB PO SCH ×2 (16:02→20:39)
[2019-03-25] MEDS: Cefepime 1 GM in Sodium Chloride 0.9% 100 ML IVPB SCH (16:03)
[2019-03-25] MEDS: Morphine 2 MG/ML SYRINGE SLOW IVP PRN (20:39)
[2019-03-25] MEDS: Rosuvastatin 5 MG TAB PO SCH (20:41)
[2019-03-25] MEDS: Ferrous Sulfate 325 MG TAB PO SCH (20:41)
--- NOTE | 2019-03-25 23:04 | CON ---
DATE OF CONSULTATION: 03/25/2019 HISTORY OF PRESENT ILLNESS: Mr. Greco is a very pleasant 88-year-old male, who was admitted after a fall. His recent pertinent history is remarkable for thromboembolic disease in July of 2018. He said he was admitted, anticoagulated and discharged home for close outpatient followup. He was apparently re-admitted approximately 2 weeks later and he tells me transferred to [facility]. There, he underwent a rotablation procedure. He also had coronary stenting done at some point in this time period. He had a followup evaluation with his physician in [place], who discovered that his right main pulmonary artery was occluded in spite of being on Xarelto. He had an another rotablation attempt through his neck and in the following day through his femoral vein, which led to successful placement of a stent in his right pulmonary artery. He says lowering pulmonary artery pressures by 30 mmHg. He subsequently has been anticoagulated and followed up in [place] with Dr. Tan. Since that time, he had fibroxanthoma, resected. He developed a satellite lesion requiring another resection and then a followup resection after that to remove unclear margins. He is tentatively scheduled for radiation as a followup treatment of that. I was consulted presumably because of an abnormal chest CT. The reason for consultation was not given to my respite provider. He says he got up at 4 o'clock in the morning and passed out, but he says he usually stands up for a while, but this time got up out of bed and then he thinks blacked out and fell. CT scanning of his lumbar spine showed abnormalities in L1 and L2 vertebral bodies suggestive of pathological fracture. He is not a candidate for an MRI because of pacemaker apparently. He has been seen by Neurosurgery. Surgery is not anticipated. Dr. Christensen has been consulted for consideration of radiation. He tells me he thinks there is a biopsy scheduled, but he is not sure about. He has been able to ambulate with physical therapy. PAST MEDICAL HISTORY: 1. Remarkable for hypertension. 2. History of lipid disorder. 3. History of pacemaker. 4. History of herniorrhaphy. 5. 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 6. History of hypothyroidism, on replacement. 7. He is a nonsmoker and nondrinker. ALLERGIES: HE HAS NO REPORTED DRUG ALLERGIES. FAMILY HISTORY: Negative for lung disease in early age. SOCIAL HISTORY: Not obtained. His is at the bedside. They have been for almost 60 years. REVIEW OF SYSTEMS: Ten point review of systems completed, otherwise negative. He says he always has back pain. PHYSICAL EXAMINATION: GENERAL: He is a pleasant gentleman, in no distress. VITAL SIGNS: He is afebrile. Heart rate 66, respiratory rate is 18, oximetry is 92% on 1.5 L/minute, blood pressure 126/61. HEAD AND NECK: Unremarkable. LUNGS: Clear. HEART: Regular rhythm. S1 and S2 normal. ABDOMEN: Soft and nontender. EXTREMITIES: Without clubbing, cyanosis, or edema. His scalp excision scar is extremely well healed and barely visible. His CAT scan has been reviewed. He has a large masslike density in his right mid lung suggestive of pulmonary infarction. He is hesitant to undergo biopsy, even though we discussed the possibility that L1 and L2 vertebral bodies could be malignant. He said he is willing to undergo biopsy if necessary. I do have concerns about withholding anticoagulants. I am concerned that he had progressive thrombosis in spite of Xarelto. He apparently was switched to Eliquis which has the same mechanism of action. I would wonder if he did not have a hypercoagulable state of malignancy and would be better served with a direct thrombin inhibitor. Serum protein electrophoresis is pending. I plan to discuss the above with the other physicians involved in his care. Dr. Tan will see him in followup since he has seen him in the past. This is a 50 minute consult, with greater than 50% of time spent on unit coordinating care. Job ID: [id number] [id number]
[2019-03-26] MEDS: Morphine 2 MG/ML SYRINGE SLOW IVP PRN ×4 (01:51→23:02)
[2019-03-26] MEDS: Cefepime 1 GM in Sodium Chloride 0.9% 100 ML IVPB SCH ×2 (03:26→14:32)
[2019-03-26] MEDS: Levothyroxine Sodium 88 MCG TAB PO SCH (03:31)
[2019-03-26] MEDS: traMADol HCl 50 MG TAB PO PRN ×2 (03:31→16:48)
[2019-03-26] MEDS: Ubidecarenone 50 MG CAP PO SCH (08:24)
[2019-03-26] MEDS: Ferrous Sulfate 325 MG TAB PO SCH ×2 (08:24→20:27)
[2019-03-26] MEDS: Clopidogrel Bisulfate 75 MG TAB PO SCH (08:25)
[2019-03-26] MEDS: Senokot S 8.6-50 MG TAB PO SCH ×2 (08:25→20:27)
[2019-03-26] MEDS: Famotidine 20 MG TAB PO SCH ×2 (08:25→20:27)
[2019-03-26] MEDS: Ibuprofen 200 MG TAB PO SCH ×3 (08:27→20:29)
[2019-03-26] MEDS: Polyethylene Glycol 3350 17 GM Packet PO SCH (08:27)
[2019-03-26] MEDS: Folic Acid 1 MG TAB PO SCH (08:28)
[2019-03-26] MEDS: Sildenafil Citrate 20 MG TAB PO SCH ×3 (08:31→20:29)
[2019-03-26 13:44] VITALS: BMI 18.3
--- NOTE | 2019-03-26 14:05 | PRG ---
DATE OF SERVICE: 03/26/2019 SUBJECTIVE: I visited with Mr. Greco today. He was having more back pain this morning. He reports that when he woke up, his brace was displaced. His pain is doing better now that he is lying flat in bed and got some morphine. Otherwise, he is doing the same. His breathing is the same. He has no difficulty with swallowing. He voices no other complaints. OBJECTIVE: CONSTITUTIONAL: He is alert and oriented, but is now lying in bed. Karnofsky performance status is decreased at 50%. VITAL SIGNS: Height 6 feet. Weight 135 pounds. Blood pressure 143/66, pulse is 70, respirations are 18, temperature 97.8, and O2 saturation is 94% on 1 L O2. HEENT: Eyes, pupils are equal, round, and reactive to light. Extraocular movements are intact. ENT, oral cavity and oropharynx revealed no lesion or erythema. Palate elevates symmetrically. NECK: Supple without cervical or supraclavicular adenopathy. No thyromegaly. LUNGS: Breathing nonlabored. Clear to auscultation and percussion. CARDIOVASCULAR: Heart regular rate and rhythm without murmur. No lower extremity edema. ABDOMEN: Soft, nontender, and nondistended without mass or hepatosplenomegaly. Liver percusses normal size. NEUROLOGIC: Cranial nerves 2 through 12 are grossly intact. Motor strength is 5/5 in both upper and lower extremities in all muscle groups tested. Gait was not tested. RADIOLOGIC DATA: I did review a CT of the chest, abdomen, and pelvis as well as his CT of the lumbar spine with Dr. Veloz in Radiology. Dr. Veloz thinks that it is highly likely that the disease seen in L1 and L2 is metastatic malignancy. He does not think the changes that we see with the lytic lesions as well as some potential soft tissue extension into the canal at L2 would be seen with an osteoporotic compression fracture. Additionally, Dr. Veloz is very concerned that he may actually have a sarcoma involving the pulmonary artery and now in the lung after reviewing his films. This could potentially be his primary site. LABORATORY DATA: CBC yesterday on 03/25/2019, revealed a white blood cell count of 6,200 with a hemoglobin of 7.4, hematocrit of 23.2, and platelet count of 283,000. ASSESSMENT: Mr. Greco has had worsening pain today. This is likely from his disease in the lumbar spine. 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 I think this is much more likely than osteoporotic compression fracture. PLAN: I did discuss the case with Dr. Magdaleno, who is his hospitalist today as well as Dr. Tan. I discussed the concerns for a potential pulmonary artery sarcoma. Dr. Tna informs me that he has been concerned about a possible sarcoma for some time. I think the best plan is to proceed with a biopsy. Dr. Tan does not feel that he can biopsy the lung because of him being on Plavix. The patient is actually scheduled for a biopsy of his lumbar spine tomorrow through Interventional Radiology. I think that is the best way to proceed. I have discussed all this with Mr. Greco. I explained the concern, the CT scan findings and the concern that he may have a sarcoma in the chest/pulmonary artery as well as the potential metastatic disease. He understands that the prognosis is going to be quite poor if we do confirm that that is the diagnosis. I explained the likelihood of a concern for having metastatic disease in the spine. I did explain that if we do prove that he has metastatic disease that he may have some options of radiation therapy in terms of palliation of his pain and prevent any neurological decline. Nevertheless, his overall prognosis would still be quite poor. He remains agreeable to proceed with a biopsy tomorrow. We will follow him with you. Job ID: [id number]
--- NOTE | 2019-03-26 15:11 | PRG ---
DATE OF SERVICE: 03/26/2019 I reviewed the notes of my colleague, Albert Navarro PA-C, and spoke with Dr. Sheffield regarding Mr. Greco. He has likely pathologic fracture at the L1-L2 segment, in particular lytic lesions in the L2 segment. 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 He has pulmonary embolism and even has a stent in place and is on Eliquis and Plavix. While he is neurologically intact with no worrisome canal compromise, unfortunately, there is significant concern obviously for pathologic fracture and the need for radiation, as such I recommended CT-guided needle biopsy to confirm this. Dr. Christensen is seeing the patient and agrees with the plan. DIAGNOSIS: Pathologic fracture of the lumbar spine. Job ID: [id number]
--- NOTE | 2019-03-26 16:19 | PDOC.HOSPP ---
- Subjective Subjective: pt up in bed complains of pain to his right hip area. pt and not clear why a bone biopsy is needed. I explained to the pt and his that findings on CT scan and the fact that he had and extensive PE which required a stent with no apparent cause. I also discussed the conversation i had with Dr Christensen and he too is concerned that this may be a metastatic lesion. SPEP and UPEP have been ordered and are pending. Pulmonary wants to hold off on bronchoscopy for now. Pt and understands and will go with a CT guided bone biopsy. - Objective Vital Signs & Weight: Vital Signs (12 hours) Temp Pulse Resp BP Pulse Ox 03/26/19 08:00 100 03/26/19 07:55 97.8 F 70 18 143/66 H 94 L 03/26/19 07:42 64 14 93 L Weight Admit Weight 135 lb Weight 135 lb I&O: 03/25/19 03/26/19 03/27/19 06:59 06:59 06:59 Intake Total 520 Output Total 275 450 Balance 245 -450 Result Diagrams: 03/25/19 04:22 03/25/19 04:22 ROS - Review of Systems All systems: All other ROS were reviewed and found negative. Respiratory: denies: cough, dry, shortness of breath, hemoptysis, SOB with excertion, pleuritic pain, sputum, wheezing, other Cardiovascular: denies: chest pain, palpitations, orthopnea, paroxysmal noc. dyspnea, edema, light headedness, other Gastrointestinal: denies: nausea, vomitting, abdominal pain, diarrhea, constipation, melena, hematochezia, other Musculoskeletal: reports: other (right hip pain) - Medication Medications: Active Medications Generic Name Dose Route Start Last Admin Trade Name Freq PRN Reason Stop Dose Admin Albuterol/Ipratropium 3 ml 03/25/19 19:00 03/26/19 13:45 Duoneb NEB Not Given [id number] TRACY Clopidogrel Bisulfate 75 mg 03/26/19 09:00 03/26/19 08:25 Plavix PO 75 mg DAILY TRACY Administration Coenzyme Q10 400 mg 03/25/19 09:00 03/26/19 08:24 Coenzyme Q10 PO Not Given DAILY TRACY Famotidine 20 mg 03/24/19 21:00 03/26/19 08:25 Pepcid PO 20 mg BID TRACY Administration Ferrous Sulfate 325 mg 03/25/19 21:00 03/26/19 08:24 Feosol PO 325 mg BID TRACY Administration Folic Acid 5 mg 03/26/19 09:00 03/26/19 08:28 Folvite PO 5 mg DAILY TRACY Administration Cefepime HCl 1 gm/ Sodium 100 mls @ 200 mls/hr 03/25/19 15:00 03/26/19 03:26 Chloride IVPB 100 mls 0300,1500 TRACY Administration Levofloxacin 500 mg/ Device 100 mls @ 100 mls/hr 03/25/19 14:00 03/25/19 16: 48 IVPB 100 mls Q24HR TARCY Administration Ibuprofen 400 mg 03/24/19 15:00 03/26/19 08:27 Motrin PO 400 mg TID [facility] Administration Levothyroxine Sodium 88 mcg 03/25/19 06:00 03/26/19 03:31 Synthroid PO 88 mcg 0600 TRACY Administration Morphine Sulfate 2 mg 03/24/19 13:27 03/26/19 08:33 Morphine SLOW IVP 2 mg Q4H PRN Administration Pain Polyethylene Glycol 17 gm 03/25/19 09:00 03/26/19 08:27 Miralax PO Not Given DAILY [facility] Rosuvastatin Calcium 5 mg 03/24/19 21:00 03/25/19 20:41 Crestor PO 5 mg QPM TRACY Administration Senna/Docusate Sodium 2 tab 03/24/19 21:00 03/26/19 08:25 Senokot S PO 2 tab BID [facility] Administration Sildenafil Citrate 20 mg 03/25/19 15:00 03/26/19 08:31 Revatio PO 20 mg TID TRACY Administration Sodium Chloride 10 ml 03/24/19 21:00 03/25/19 21:00 Flush - Normal Saline IVF Not Given Q12HR TRACY Sodium Chloride 10 ml 03/24/19 20:38 03/26/19 03:27 Flush - Normal Saline IVF 10 ml PRN PRN Administration Saline Flush Tramadol HCl 50 mg 03/24/19 13:23 03/26/19 03:31 Ultram PO 50 mg Q6H PRN Administration Pain - Exam Neck: negative: supple, symmetric, no JVD, no Thyromegaly, no lymphadenopathy, no carotid bruit, JVD Heart: negative: RRR, no murmur, no gallops, no rubs, normal peripheral pulses, irregular, diminshed peripheral pulses, murmur present, II/IV, III/IV Respiratory: negative: CTAB, no wheezes, no rales, no ronchi, normal chest expansion, no tachypnea, normal percussion, rales, rhonchi, tachypneic, wheezes Gastrointestinal: negative: soft, non-tender, non-distended, normal bowel sounds , no palpable masses, no hepatomegaly, no splenomegaly, no bruit, tender to palpation, distended, diminished bowl sounds, voluntary guarding Hosp A/P (1) L1, 2 lytic lesion with fracture and com Status: Acute (2) Status post pulmonary artery branches stent placement Code(s): Z98.890 - OTHER SPECIFIED POSTPROCEDURAL STATES Status: Acute (3) History of pulmonary embolus (PE) Code(s): Z86.711 - PERSONAL HISTORY OF PULMONARY EMBOLISM Status: Chronic (4) Pulmonary hypertension Code(s): I27.20 - PULMONARY HYPERTENSION, UNSPECIFIED Status: Chronic - Plan pt's abhinavbamis is on hold for now. will continue plavix. pt to have bone biopsy in am. Not sure if he has pna but he is on abx, will wait for pulm recommendation. RADHA brace for pt on ambulation.
--- NOTE | 2019-03-26 18:22 | PRG ---
DATE OF SERVICE: 03/26/2019 SERVICE: Pulmonary Medicine. INTERVAL HISTORY: The patient is doing okay from a Respiratory standpoint. His multiple findings were identified on the CT of the spine and CT of the chest here recently. It appears as though the patient has had multiple metastatic lesions that have popped up all of a sudden. He recently was seen in [place]. They ended up doing pulmonary arterial stenting and balloon angioplasty in order to improve blood flow through the lungs. This was a short-lived helpful procedure. He denies any current fevers or chills. He does have profound dyspnea that limits his activity. PHYSICAL EXAMINATION: VITAL SIGNS: Afebrile, pulse 70, blood pressure 143/66, respirations 18, and saturation 94% on 1 L nasal cannula. GENERAL: The patient is awake and alert, in no apparent distress. LUNGS: Good air entry. There is no prolonged expiratory phase or wheezing present. HEART: Normal rate, regular. ABDOMEN: Soft, nontender, nondistended. Bowel sounds are positive. MUSCULOSKELETAL: No cyanosis or clubbing. No pitting in the bilateral lower extremities. NEUROLOGIC: Grossly nonfocal. LABORATORY DATA: WBC 6.2, hemoglobin 7.4 and downtrending, and platelets 283, 000. Creatinine 0.82. Basic metabolic profile is otherwise unremarkable. CRP 8.45. Blood cultures x2 are unremarkable. ASSESSMENT: 1. Pulmonary hypertension, secondary to undefined pulmonary arterial process that has failed therapy for pulmonary veno-thromboembolic disease and acute pulmonary emboli. 2. 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 3. Bilateral pleural effusions, small. 4. Atelectasis in the left lower lobe. 5. Lumbar fractures, likely pathologic. DISCUSSION AND PLAN: The patient is going to undergo an IR-guided biopsy of one of these lumbar lesions. I do suspect that we are dealing with some sort of an invasive growth. Unfortunately, given the patient's advanced age and functional status, he is not going to be a candidate for any type of significant interventions here. If we get a diagnosis off this biopsy, the only option moving forward may be hospice. Pulmonary/Critical Care will continue to follow very closely. Job ID: [id number] MTDD
[2019-03-26] MEDS: RIOCIGUAT 2 MG PO SCH (20:28)
[2019-03-26] MEDS: Rosuvastatin 5 MG TAB PO SCH (20:29)
[2019-03-27] MEDS: Cefepime 1 GM in Sodium Chloride 0.9% 100 ML IVPB SCH ×2 (04:02→15:33)
[2019-03-27] MEDS: traMADol HCl 50 MG TAB PO PRN ×3 (04:05→20:31)
[2019-03-27] MEDS: Levothyroxine Sodium 88 MCG TAB PO SCH (04:55)
[2019-03-27] MEDS: Morphine 2 MG/ML SYRINGE SLOW IVP PRN ×3 (07:47→21:37)
[2019-03-27] MEDS ORDERED: Sodium Bicarbonate 2.5 MEQ/5 ML VIAL ONE (08:22)
[2019-03-27] MEDS ORDERED: Fentanyl 100 MCG/2 ML VIAL ONE (08:22)
[2019-03-27] MEDS ORDERED: Midazolam HCl 2 mg/2 ml Vial ONE (08:22)
--- NOTE | 2019-03-27 08:25 | RAD ---
XR Chest 1 View Portable HISTORY: pulmonary embolus FINDINGS: The heart size is normal. There is a left-sided pacemaker device. Masslike opacity is seen in the right midlung. There are small bilateral pleural effusions. No pneumothoraces are seen.
[2019-03-27] MEDS: Polyethylene Glycol 3350 17 GM Packet PO SCH (09:30)
[2019-03-27] MEDS: Sildenafil Citrate 20 MG TAB PO SCH ×3 (09:31→20:24)
[2019-03-27] MEDS: Ibuprofen 200 MG TAB PO SCH ×3 (09:32→20:25)
[2019-03-27] MEDS: RIOCIGUAT 2 MG PO SCH ×3 (09:33→20:23)
[2019-03-27] MEDS: Clopidogrel Bisulfate 75 MG TAB PO SCH (09:37)
[2019-03-27] MEDS: Ferrous Sulfate 325 MG TAB PO SCH ×2 (09:38→20:26)
[2019-03-27] MEDS: Folic Acid 1 MG TAB PO SCH (09:38)
[2019-03-27] MEDS: Famotidine 20 MG TAB PO SCH ×2 (09:39→20:26)
[2019-03-27] MEDS: Senokot S 8.6-50 MG TAB PO SCH ×3 (09:41→20:25)
[2019-03-27] MEDS: Ubidecarenone 50 MG CAP PO SCH (09:41)
[2019-03-27 10:53] LABS: #Eosinphils 0.2 thou/uL (0.0-0.7); #Lymphocytes 0.7 thou/uL (1.20-3.40); #Monocytes 0.6 thou/uL (0.11-0.59); #Neutrophils 6.6 thou/uL (1.40-6.50); %Basophils 0.2 % (0.0-1.0); %Eosinophils 2.8 % (0.0-10.0); %Lymphocytes 8.7 % (21.0-51.0); %Neutrophils 81.4 % (42.0-75.0); Hemoglobin 9.2 g/dL (14.0-18.0); Mean Corpuscular HGB CONC 32.3 g/dL (32.0-36.0); Mean Corpuscular Hemoglobin 25.7 pg (27.0-31.0); Mean Corpuscular Volume 79.6 fL (78.0-98.0); Mean Platelet Volume 6.1 fL (7.4-10.4); Platelet Count 296 thou/uL (130-400); RBC Distribution Width 18.9 % (11.5-14.5); Red Blood Cell (RBC) Count 3.59 mill/uL (4.70-6.10); White Blood Cell (WBC) Count 8.1 thou/uL (4.8-10.8)
[2019-03-27 11:21] LABS: Anion Gap 11 mmol/L (10-20); BUN (Urea Nitrogen) 12 mg/dL (8.4-25.7); Calc. Creatinine Clearance 62 mL/min (70-130); Calcium 8.8 mg/dL (7.8-10.44); Carbon Dioxide 25 mmol/L (23-31); Chloride 100 mmol/L (98-107); Estimated GFR-MDRD Greater than 90; Glucose 101 mg/dL (83-110); Potassium 3.8 mmol/L (3.5-5.1); Sodium 132 mmol/L (136-145)
--- NOTE | 2019-03-27 15:34 | CT ---
CT-guided lumbar spine mass biopsy Conscious sedation: At least 40 minutes were spent with the patient for conscious sedation. HISTORY: Vertebral mass. FINDINGS: After explaining the procedure and answering all questions, patient was placed on the CT ta ble in prone position. Limited imaging of the spine was performed. Sterile technique, buffered local anesthesia, CT guidance, conscious sedation, and a left posterolateral approach were used to ca refully advance a 17-gauge trocar needle into the superior margin of the lytic mass in the left side of the L2 vertebral body. Position was confirmed with CT. Multiple core biopsies were obtained with an 18-gauge needle. Some were submitted to Dr. Kinney from athology. Touch prep evaluation did not show malignant cells. Position of the needle was confidently within the superior margin of the mass, so that adequate sampling is certain. Additional samples were obtained and placed directly into the formalin. Needle was removed. No evidence of complication. Patient tolerated the procedure well and was returne d in unchanged condition. IMPRESSION: Technically successful CT-guided biopsy lumbar spine mass. Pathology is pending.
--- NOTE | 2019-03-27 17:00 | PDOC.HOSPP ---
- Subjective Subjective: pt up in bed complains of pain from his biopsy site - Objective Vital Signs & Weight: Vital Signs (12 hours) Temp Pulse Pulse Pulse Pulse Resp BP 03/27/19 16:00 97.4 F L 63 16 96/49 L 03/27/19 11:33 80 87 81 03/27/19 09:42 97.9 F 64 20 BP Pulse Ox Pulse Ox Pulse Ox Pulse Ox 03/27/19 16:00 94 L 03/27/19 11:33 94 L 91 L 96 03/27/19 09:42 124/61 93 L Weight Admit Weight 135 lb Weight 135 lb I&O: 03/26/19 03/27/19 03/28/19 06:59 06:59 06:59 Intake Total 850 Output Total 450 1625 Balance -450 -525 Result Diagrams: 03/27/19 10:30 03/27/19 10:30 ROS - Review of Systems All systems: All other ROS were reviewed and found negative. Respiratory: denies: cough, dry, shortness of breath, hemoptysis, SOB with excertion, pleuritic pain, sputum, wheezing, other Cardiovascular: denies: chest pain, palpitations, orthopnea, paroxysmal noc. dyspnea, edema, light headedness, other Musculoskeletal: reports: back pain - Medication Medications: Active Medications Generic Name Dose Route Start Last Admin Trade Name Freq PRN Reason Stop Dose Admin Albuterol/Ipratropium 3 ml 03/27/19 04:31 03/27/19 04:47 Duoneb NEB 3 ml Q6H PRN Administration SOB &/or Wheezing Clopidogrel Bisulfate 75 mg 03/26/19 09:00 03/27/19 09:37 Plavix PO 75 mg DAILY TRACY Administration Coenzyme Q10 400 mg 03/25/19 09:00 03/27/19 09:41 Coenzyme Q10 PO Not Given DAILY TRACY Famotidine 20 mg 03/24/19 21:00 03/27/19 09:39 Pepcid PO 20 mg BID TRACY Administration Ferrous Sulfate 325 mg 03/25/19 21:00 03/27/19 09:38 Feosol PO 325 mg BID TRACY Administration Folic Acid 5 mg 03/26/19 09:00 03/27/19 09:38 Folvite PO 5 mg DAILY TRACY Administration Cefepime HCl 1 gm/ Sodium 100 mls @ 200 mls/hr 03/25/19 15:00 03/27/19 15:33 Chloride IVPB 100 mls 0300,1500 TRACY Administration Levofloxacin 500 mg/ Device 100 mls @ 100 mls/hr 03/25/19 14:00 03/27/19 13: 23 IVPB 100 mls Q24HR TRACY Administration Ibuprofen 400 mg 03/24/19 15:00 03/27/19 15:36 Motrin PO 400 mg TID TRACY Administration Levothyroxine Sodium 88 mcg 03/25/19 06:00 03/27/19 04:55 Synthroid PO 88 mcg 0600 TRACY Administration Morphine Sulfate 2 mg 03/24/19 13:27 03/27/19 13:23 Morphine SLOW IVP 2 mg Q4H PRN Administration Pain (Ri[place]at [Adempas] 0 mg 03/26/19 21:00 03/27/19 16:35 2 Mg) PO 2 mg TID TRACY Administration Polyethylene Glycol 17 gm 03/25/19 09:00 03/27/19 09:30 Miralax PO 17 gm DAILY [facility] Administration Rosuvastatin Calcium 5 mg 03/24/19 21:00 03/26/19 20:29 Crestor PO 5 mg QPM TRACY Administration Senna/Docusate Sodium 2 tab 03/24/19 21:00 03/27/19 09:52 Senokot S PO Not Given BID [facility] Sildenafil Citrate 20 mg 03/25/19 15:00 03/27/19 15:36 Revatio PO 20 mg TID TRACY Administration Sodium Chloride 10 ml 03/24/19 21:00 03/27/19 09:40 Flush - Normal Saline IVF 10 ml Q12HR TRACY Administration Sodium Chloride 10 ml 03/24/19 20:38 03/26/19 03:27 Flush - Normal Saline IVF 10 ml PRN PRN Administration Saline Flush Tramadol HCl 50 mg 03/24/19 13:23 03/27/19 10:57 Ultram PO 50 mg Q6H PRN Administration Pain - Exam Heart: negative: RRR, no murmur, no gallops, no rubs, normal peripheral pulses, irregular, diminshed peripheral pulses, murmur present, II/IV, III/IV Respiratory: negative: CTAB, no wheezes, no rales, no ronchi, normal chest expansion, no tachypnea, normal percussion, rales, rhonchi, tachypneic, wheezes Gastrointestinal: negative: soft, non-tender, non-distended, normal bowel sounds , no palpable masses, no hepatomegaly, no splenomegaly, no bruit, tender to palpation, distended, diminished bowl sounds, voluntary guarding Hosp A/P (1) L1, 2 lytic lesion with fracture and com Status: Acute (2) Status post pulmonary artery branches stent placement Code(s): Z98.890 - OTHER SPECIFIED POSTPROCEDURAL STATES Status: Acute (3) History of pulmonary embolus (PE) Code(s): Z86.711 - PERSONAL HISTORY OF PULMONARY EMBOLISM Status: Chronic (4) Pulmonary hypertension Code(s): I27.20 - PULMONARY HYPERTENSION, UNSPECIFIED Status: Chronic - Plan s/p biopsy will start pt on his eliquis in am. will check hh in am. Pt physically at baseline is active and is doing well currently. He will do well in inpatient rehab.
[2019-03-27 17:09] LABS: A/G Ratio 0.8 (0.7-1.7); Albumin 2.5 g/dL (2.9-4.4); Alpha 1 0.5 g/dL (0.0-0.4); Beta 0.8 g/dL (0.7-1.3); Gamma 0.8 g/dL (0.4-1.8); Globulin, Total 3.2 g/dL (2.2-3.9); M-Spike Not Observed g/dL (Not Observed)
[2019-03-27] MEDS: Rosuvastatin 5 MG TAB PO SCH (20:25)
[2019-03-28] MEDS: traMADol HCl 50 MG TAB PO PRN ×2 (03:12→21:37)
[2019-03-28] MEDS: Cefepime 1 GM in Sodium Chloride 0.9% 100 ML IVPB SCH ×2 (03:12→14:46)
[2019-03-28 06:18] LABS: #Eosinphils 0.6 thou/uL (0.0-0.7); #Lymphocytes 1.2 thou/uL (1.20-3.40); #Monocytes 0.8 thou/uL (0.11-0.59); #Neutrophils 6.1 thou/uL (1.40-6.50); %Basophils 0.1 % (0.0-1.0); %Lymphocytes 13.3 % (21.0-51.0); %Monocytes 8.8 % (0.0-10.0); %Neutrophils 70.8 % (42.0-75.0); Hemoglobin 8.5 g/dL (14.0-18.0); Mean Corpuscular HGB CONC 32.6 g/dL (32.0-36.0); Mean Corpuscular Volume 79.6 fL (78.0-98.0); Mean Platelet Volume 6.5 fL (7.4-10.4); Platelet Count 294 thou/uL (130-400); RBC Distribution Width 19.3 % (11.5-14.5); Red Blood Cell (RBC) Count 3.27 mill/uL (4.70-6.10); White Blood Cell (WBC) Count 8.6 thou/uL (4.8-10.8)
[2019-03-28] MEDS: Levothyroxine Sodium 88 MCG TAB PO SCH (06:31)
[2019-03-28 06:40] LABS: Anion Gap 10 mmol/L (10-20); BUN (Urea Nitrogen) 13 mg/dL (8.4-25.7); Calc. Creatinine Clearance 65 mL/min (70-130); Calcium 8.5 mg/dL (7.8-10.44); Carbon Dioxide 24 mmol/L (23-31); Chloride 102 mmol/L (98-107); Estimated GFR-MDRD Greater than 90; Glucose 86 mg/dL (83-110); Sodium 132 mmol/L (136-145)
[2019-03-28] MEDS: Apixaban 5 MG TAB PO SCH ×2 (10:22→21:36)
[2019-03-28] MEDS: Ferrous Sulfate 325 MG TAB PO SCH ×2 (10:22→21:33)
[2019-03-28] MEDS: Clopidogrel Bisulfate 75 MG TAB PO SCH (10:22)
[2019-03-28] MEDS: Famotidine 20 MG TAB PO SCH ×2 (10:23→21:34)
[2019-03-28] MEDS: Sildenafil Citrate 20 MG TAB PO SCH ×3 (10:23→21:37)
[2019-03-28] MEDS: Ibuprofen 200 MG TAB PO SCH (10:24)
[2019-03-28] MEDS: Senokot S 8.6-50 MG TAB PO SCH ×2 (10:24→21:34)
[2019-03-28] MEDS: Polyethylene Glycol 3350 17 GM Packet PO SCH (10:25)
[2019-03-28] MEDS: Ubidecarenone 50 MG CAP PO SCH (10:26)
[2019-03-28] MEDS: Folic Acid 1 MG TAB PO SCH (10:29)
[2019-03-28] MEDS: RIOCIGUAT 2 MG PO SCH ×3 (10:29→21:36)
[2019-03-28] MEDS: Morphine 2 MG/ML SYRINGE SLOW IVP PRN ×2 (11:10→15:47)
--- NOTE | 2019-03-28 13:46 | PRG ---
DATE OF SERVICE: 03/28/2019 SUBJECTIVE: I visited with Mr. Greco today about his biopsy results. He did have a biopsy of his lumbar spine yesterday. He feels that he is weakened. He was able to get out of bed and take a shower today. However, he states that it was much more difficult than it was 2 days ago. He is getting morphine to control his pain. He did feel a little bit of tingling in his left leg today. He denies any numbness or leg weakness. Overall, he just feels a little weaker. OBJECTIVE: VITAL SIGNS: Height 6 feet, weight 135 pounds. His blood pressure is 98/49, pulse is 72, respirations 16, temperature is 97.7, and O2 saturation is 93% on 1 L O2. GENERAL: He is alert and oriented and in no apparent distress. Karnofsky performance status is 30%. NEUROLOGIC: Reveals motor strength in both legs to be good at the hips with plantar flexion and dorsiflexion. Gait was not tested. LABORATORY STUDIES: CBC today revealed a white blood cell count of 8600, with hemoglobin of 8.5, hematocrit of 26.0, and platelet count of 294,000. Chemistry group revealed a sodium of 132. Preliminary biopsy results do show malignancy in the spine. The type is not yet been classified as special immunostains are pending. It possibly has some spindle cell features. RADIOLOGIC DATA: CT scan of the lumbar spine was reviewed again with Radiology. I was concerned besides the lytic lesions in L1 and L2 and the compression fracture at L2 that he has a possible lesion in the sacrum. Radiology felt that this was more a benign cyst rather than malignancy. 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 Path is currently pending. 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 It is also possible that the lesion on the scalp is metastasis as well rather than an atypical fibroxanthoma. PLAN: I had a lengthy discussion with Mr. Greco and his , who was listening in by cell phone regarding his situation and diagnosis and prognosis. He continues to decline in terms of performance status. His overall prognosis is quite poor and survival is likely to be quite short. We discussed possible treatment options at this point. I explained that since he has stage IV disease, his disease is not curable. I do not think he would be a good candidate for chemotherapy. I did offer him palliative radiation therapy to the L1 and L2 vertebral bodies. This would be in hopes of improving his pain as well as prevent any neurological compromise. The logistics of radiation as well as the benefits and risk of treatment were discussed. The simulation and daily treatment procedure were discussed. Side effects would include but not be limited to skin reaction, fatigue, lower blood counts, nausea , vomiting, and small risk of damage to any structure which receives radiation therapy. I would plan a 2-week course of radiation. Other options would be hospice care. Hospice care could take place after the radiation therapy if he decides to pursue radiation, or if he declines radiation therapy, he could consider hospice care instead. If he is on radiation, then he may be a candidate for palliative care while he is on the radiation therapy. Time was taken to answer all of his questions and all of his 's questions to the best of my ability. He is going to discuss this with his family and will let me know hopefully by tomorrow what he decides to do in terms of radiation therapy. A big issue will be transportation to his treatments if he decides to do radiation. Job ID: [id number] MTDD
[2019-03-28] MEDS ORDERED: Dexamethasone 4 MG TAB PO SCH (17:30)
[2019-03-28 19:08] LABS: Alpha 1 - Ur 9.4 % (.); Beta-Ur 24.5 % (.); Gamma-Ur 15.1 % (.); M-Spike,% Not Observed % (Not Observed); Protein, Urine 13.8 mg/dL (Not Estab.)
[2019-03-28] MEDS: Melatonin 3 MG TAB PO PRN (21:33)
[2019-03-28] MEDS: Rosuvastatin 5 MG TAB PO SCH (21:37)
[2019-03-29] MEDS: Cefepime 1 GM in Sodium Chloride 0.9% 100 ML IVPB SCH ×2 (03:30→16:14)
[2019-03-29] MEDS: Levothyroxine Sodium 88 MCG TAB PO SCH (06:42)
--- NOTE | 2019-03-29 09:55 | PDOC.HOSPP ---
- Subjective Subjective: pt up in bed complains of pain to his left hip area - Objective Vital Signs & Weight: Vital Signs (12 hours) Temp Pulse Resp BP Pulse Ox 03/29/19 07:40 98.0 F 85 18 135/77 93 L Weight Admit Weight 135 lb Weight 135 lb I&O: 03/28/19 03/29/19 03/30/19 06:59 06:59 06:59 Intake Total 625 850 Output Total 1150 475 Balance -525 375 Result Diagrams: 03/28/19 05:40 03/28/19 05:40 ROS - Review of Systems All systems: All other ROS were reviewed and found negative. Cardiovascular: denies: chest pain, palpitations, orthopnea, paroxysmal noc. dyspnea, edema, light headedness, other Gastrointestinal: denies: nausea, vomitting, abdominal pain, diarrhea, constipation, melena, hematochezia, other Musculoskeletal: reports: other (left hip) - Medication Medications: Active Medications Generic Name Dose Route Start Last Admin Trade Name Freq PRN Reason Stop Dose Admin Albuterol/Ipratropium 3 ml 03/27/19 04:31 03/28/19 11:02 Duoneb NEB 3 ml Q6H PRN Administration SOB &/or Wheezing Apixaban 5 mg 03/28/19 09:00 03/28/19 21:36 Eliquis PO 5 mg BID TRACY Administration Clopidogrel Bisulfate 75 mg 03/26/19 09:00 03/28/19 10:22 Plavix PO 75 mg DAILY TRACY Administration Coenzyme Q10 400 mg 03/25/19 09:00 03/28/19 10:26 Coenzyme Q10 PO Not Given DAILY TRACY Famotidine 20 mg 03/24/19 21:00 03/28/19 21:34 Pepcid PO 20 mg BID TRACY Administration Fentanyl 12 mcg 03/28/19 11:30 03/28/19 13:11 Duragesic TD 12 mcg Q3D TRACY Administration Ferrous Sulfate 325 mg 03/25/19 21:00 03/28/19 21:33 Feosol PO 325 mg BID TRACY Administration Cefepime HCl 1 gm/ Sodium 100 mls @ 200 mls/hr 03/25/19 15:00 03/29/19 03:30 Chloride IVPB 100 mls 0300,1500 TRACY Administration Levofloxacin 500 mg/ Device 100 mls @ 100 mls/hr 03/25/19 14:00 03/28/19 15: 46 IVPB 100 mls Q24HR TRACY Administration Levothyroxine Sodium 88 mcg 03/25/19 06:00 03/29/19 06:42 Synthroid PO 88 mcg 0600 TRACY Administration Melatonin 6 mg 03/28/19 20:49 03/28/19 21:33 Melatonin PO 6 mg HS PRN Administration Insomnia Morphine Sulfate 2 mg 03/24/19 13:27 03/28/19 15:47 Morphine SLOW IVP 2 mg Q4H PRN Administration Pain (Riociguat [Adempas] 0 mg 03/26/19 21:00 03/28/19 21:36 2 Mg) PO 2 mg TID TRACY Administration Polyethylene Glycol 17 gm 03/25/19 09:00 03/28/19 10:25 Miralax PO 17 gm DAILY TRACY Administration Rosuvastatin Calcium 5 mg 03/24/19 21:00 03/28/19 21:37 Crestor PO 5 mg QPM TRACY Administration Senna/Docusate Sodium 2 tab 03/24/19 21:00 03/28/19 21:34 Senokot S PO 2 tab BID TRACY Administration Sildenafil Citrate 20 mg 03/25/19 15:00 03/28/19 21:37 Revatio PO 20 mg TID TRACY Administration Sodium Chloride 10 ml 03/24/19 21:00 03/28/19 21:41 Flush - Normal Saline IVF 10 ml Q12HR TRACY Administration Sodium Chloride 10 ml 03/24/19 20:38 03/26/19 03:27 Flush - Normal Saline IVF 10 ml PRN PRN Administration Saline Flush Tramadol HCl 50 mg 03/24/19 13:23 03/28/19 21:37 Ultram PO 50 mg Q6H PRN Administration Pain - Exam Heart: negative: RRR, no murmur, no gallops, no rubs, normal peripheral pulses, irregular, diminshed peripheral pulses, murmur present, II/IV, III/IV Respiratory: negative: CTAB, no wheezes, no rales, no ronchi, normal chest expansion, no tachypnea, normal percussion, rales, rhonchi, tachypneic, wheezes Gastrointestinal: negative: soft, non-tender, non-distended, normal bowel sounds , no palpable masses, no hepatomegaly, no splenomegaly, no bruit, tender to palpation, distended, diminished bowl sounds, voluntary guarding Hosp A/P (1) L1, 2 lytic lesion with fracture and com Status: Acute (2) Status post pulmonary artery branches stent placement Code(s): Z98.890 - OTHER SPECIFIED POSTPROCEDURAL STATES Status: Acute (3) History of pulmonary embolus (PE) Code(s): Z86.711 - PERSONAL HISTORY OF PULMONARY EMBOLISM Status: Chronic (4) Pulmonary hypertension Code(s): I27.20 - PULMONARY HYPERTENSION, UNSPECIFIED Status: Chronic - Plan Had a long discussion with pt and his about his bone biopsy being malignant just waiting on final path. Pt will discuss this with family and see if he wants radiation for pain control or go home with hospice. He is not rethinking if he should go to rehab since he does not want to burden his who he feels will not be able to take care of him. I did discuss the options in regards to home health and additional home private visits for activity of daily living.
[2019-03-29] MEDS: Ferrous Sulfate 325 MG TAB PO SCH ×2 (10:09→22:33)
[2019-03-29] MEDS: Apixaban 5 MG TAB PO SCH ×2 (10:09→22:37)
[2019-03-29] MEDS: Senokot S 8.6-50 MG TAB PO SCH ×2 (10:10→22:35)
[2019-03-29] MEDS: Famotidine 20 MG TAB PO SCH ×2 (10:10→22:38)
[2019-03-29] MEDS: Clopidogrel Bisulfate 75 MG TAB PO SCH (10:10)
[2019-03-29] MEDS: Sildenafil Citrate 20 MG TAB PO SCH ×3 (10:11→22:46)
[2019-03-29] MEDS: RIOCIGUAT 2 MG PO SCH ×3 (10:12→22:34)
[2019-03-29] MEDS: traMADol HCl 50 MG TAB PO PRN ×3 (10:17→22:38)
[2019-03-29] MEDS: Polyethylene Glycol 3350 17 GM Packet PO SCH (10:21)
[2019-03-29] MEDS: Ubidecarenone 50 MG CAP PO SCH (10:22)
--- NOTE | 2019-03-29 10:26 | PDOC.PALCO ---
Palliative Care Consult - Consult Details Requesting Physician: Dr Magdaleno Reason for Consult: goals of care Family Members Present: - Pertinent HPI 88 year old male who presented to the emergency room with persistent back pain of 3 weeks with increasing in severity when he could not get up from his chair. Prior evaluation from a chiropractor revealed he had a L1 fracture. Patient also relayed in initial history that he had a rare from of skin cancer that was identified and removed three weeks ago. The plan was to have radiation to this area. 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 Palliative Care consult to assist with goals of care. - Pertinent PMH Hypertension, History of PE, dyslipidemia, pacemaker - Social History Smoking Status: Never smoker Smoking: no tobacco exposure Alcohol Use: none Drug Use History: none Living Situation: - Medications MAR Reviewed: Yes - Allergies Allergies/Adverse Reactions: Allergies Allergy/AdvReac Type Severity Reaction Status Date / Time No Known Allergies Allergy Verified 03/24/19 14:47 - Subjective Awake and alert, at bedside. Patient states pain has improved somewhat. Patient slightly anxious, he states he is being taken to get "marked" if he decided to have radiation next week. - Objective Vital Signs: Vital Signs - Most Recent Temp Pulse Resp BP Pulse Ox 98.0 F 85 18 135/77 93 L 03/29/19 07:40 03/29/19 07:40 03/29/19 07:40 03/29/19 07:40 03/29/19 07:40 Palliative Performance Scale: 50 - Advance Directives Medical Power of Muck Hauler: Patient - Physical Exam Constitutional: NAD Deviation from normal: generalized weakness HEENT: PERRLA, moist MMs, EOMI Deviation from normal: Mild labored respirations with conversation Deviation from normal: Anxious, - Problem List (1) Palliative care encounter Code(s): Z51.5 - ENCOUNTER FOR PALLIATIVE CARE Current Visit: Yes Status: Acute (2) L1, 2 lytic lesion with fracture and com Current Visit: Yes Status: Acute - Plan/Recommendations Plan:Tara Ramirez has met with patient and family extensively. DNAR has been signed. *Paitent to be "Marked" today so if he decides to continue with radiation he is able. *[facility] to meet with patient and *Dexamethasone added for pain *Theraputic listening *Family support Tara Ramirez with Palliative Care Team will continue to follow. [40] minutes spent on this encounter with >50% of the time in counseling and coordination of care. Thank you for this very appropriate consult.
[2019-03-29] MEDS: Folic Acid 1 MG TAB PO SCH ×2 (11:09→12:21)
[2019-03-29] MEDS: Morphine 2 MG/ML SYRINGE SLOW IVP PRN (13:53)
--- NOTE | 2019-03-29 14:34 | PDOC.HOSPP ---
- Subjective Subjective: pt up in bed complains of pain to his right hip - Objective Vital Signs & Weight: Vital Signs (12 hours) Temp Pulse Resp BP Pulse Ox 03/29/19 09:35 93 L 03/29/19 07:40 98.0 F 85 18 135/77 93 L Weight Admit Weight 135 lb Weight 135 lb I&O: 03/28/19 03/29/19 03/30/19 06:59 06:59 06:59 Intake Total 625 850 Output Total 1150 426 Balance -525 375 Result Diagrams: 03/28/19 05:40 03/28/19 05:40 ROS - Review of Systems All systems: All other ROS were reviewed and found negative. Respiratory: denies: cough, dry, shortness of breath, hemoptysis, SOB with excertion, pleuritic pain, sputum, wheezing, other Cardiovascular: denies: chest pain, palpitations, orthopnea, paroxysmal noc. dyspnea, edema, light headedness, other Musculoskeletal: reports: other (left hip pain) - Medication Medications: Active Medications Generic Name Dose Route Start Last Admin Trade Name Freq PRN Reason Stop Dose Admin Albuterol/Ipratropium 3 ml 03/27/19 04:31 03/28/19 11:02 Duoneb NEB 3 ml Q6H PRN Administration SOB &/or Wheezing Apixaban 5 mg 03/28/19 09:00 03/29/19 10:09 Eliquis PO 5 mg BID TRACY Administration Clopidogrel Bisulfate 75 mg 03/26/19 09:00 03/29/19 10:10 Plavix PO 75 mg DAILY TRACY Administration Coenzyme Q10 400 mg 03/25/19 09:00 03/29/19 10:22 Coenzyme Q10 PO Not Given DAILY TRACY Famotidine 20 mg 03/24/19 21:00 03/29/19 10:10 Pepcid PO 20 mg BID TRACY Administration Fentanyl 12 mcg 03/28/19 11:30 03/28/19 13:11 Duragesic TD 12 mcg Q3D TRACY Administration Ferrous Sulfate 325 mg 03/25/19 21:00 03/29/19 10:09 Feosol PO 325 mg BID TRACY Administration Folic Acid 5 mg 03/29/19 09:00 03/29/19 12:21 Folvite PO 5 mg DAILY TRACY Administration Cefepime HCl 1 gm/ Sodium 100 mls @ 200 mls/hr 03/25/19 15:00 03/29/19 03:30 Chloride IVPB 100 mls 0300,1500 TRACY Administration Levofloxacin 500 mg/ Device 100 mls @ 100 mls/hr 03/25/19 14:00 03/29/19 13: 53 IVPB 100 mls Q24HR TRACY Administration Levothyroxine Sodium 88 mcg 03/25/19 06:00 03/29/19 06:42 Synthroid PO 88 mcg 0600 TRACY Administration Melatonin 6 mg 03/28/19 20:49 03/28/19 21:33 Melatonin PO 6 mg HS PRN Administration Insomnia Morphine Sulfate 2 mg 03/24/19 13:27 03/29/19 13:53 Morphine SLOW IVP 2 mg Q4H PRN Administration Pain (Riociguat [Adempas] 0 mg 03/26/19 21:00 03/29/19 10:12 2 Mg) PO 2 mg TID TRACY Administration Polyethylene Glycol 17 gm 03/25/19 09:00 03/29/19 10:21 Miralax PO Not Given DAILY TRACY Rosuvastatin Calcium 5 mg 03/24/19 21:00 03/28/19 21:37 Crestor PO 5 mg QPM TRACY Administration Senna/Docusate Sodium 2 tab 03/24/19 21:00 03/29/19 10:10 Senokot S PO 2 tab BID TRACY Administration Sildenafil Citrate 20 mg 03/25/19 15:00 03/29/19 10:11 Revatio PO 20 mg TID TRACY Administration Sodium Chloride 10 ml 03/24/19 21:00 03/29/19 10:21 Flush - Normal Saline IVF 10 ml Q12HR TRACY Administration Sodium Chloride 10 ml 03/24/19 20:38 03/26/19 03:27 Flush - Normal Saline IVF 10 ml PRN PRN Administration Saline Flush Tramadol HCl 50 mg 03/24/19 13:23 03/29/19 10:17 Ultram PO 50 mg Q6H PRN Administration Pain - Exam Neck: negative: supple, symmetric, no JVD, no Thyromegaly, no lymphadenopathy, no carotid bruit, JVD Heart: negative: RRR, no murmur, no gallops, no rubs, normal peripheral pulses, irregular, diminshed peripheral pulses, murmur present, II/IV, III/IV Respiratory: negative: CTAB, no wheezes, no rales, no ronchi, normal chest expansion, no tachypnea, normal percussion, rales, rhonchi, tachypneic, wheezes Hosp A/P (1) L1, 2 lytic lesion with fracture and com Status: Acute (2) Status post pulmonary artery branches stent placement Code(s): Z98.890 - OTHER SPECIFIED POSTPROCEDURAL STATES Status: Acute (3) History of pulmonary embolus (PE) Code(s): Z86.711 - PERSONAL HISTORY OF PULMONARY EMBOLISM Status: Chronic (4) Pulmonary hypertension Code(s): I27.20 - PULMONARY HYPERTENSION, UNSPECIFIED Status: Chronic - Plan pathology pending, pt on fentanyl patch. pt went for mapping for palliative radiation. He is having some sputum which is a bit more than blood tinged. His hh is stable.
[2019-03-29] MEDS ORDERED: Amoxicillin/Potassium Clav 500 MG TAB PO SCH (15:15)
--- NOTE | 2019-03-29 16:08 | PRG ---
DATE OF SERVICE: 03/29/2019 SERVICE: Pulmonary Medicine. INTERVAL HISTORY: The patient is doing okay from respiratory standpoint. His pain is under decent control right now. Denies any chest pain, nausea, vomiting, or diarrhea. Otherwise, there has been no interval change to his condition. PHYSICAL EXAMINATION: VITAL SIGNS: Afebrile, pulse 85, blood pressure 135/77, respirations 18, and saturation 93% on 1 L nasal cannula. GENERAL: The patient is awake and alert, in no apparent distress. LUNGS: Very good air entry. There is no prolonged expiratory phase or wheezing present. Rhonchi are present on the right. HEART: Normal rate and regular. ABDOMEN: Soft, nontender, and nondistended. Bowel sounds are positive. MUSCULOSKELETAL: No cyanosis or clubbing. There is no pitting in the bilateral lower extremities. NEUROLOGIC: Grossly nonfocal. ASSESSMENT: 1. 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 2. 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 3. Bilateral pleural effusions, small. 4. 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 DISCUSSION AND PLAN: At this point, from a pulmonary standpoint, we unfortunately have nothing to offer Mr. Greco. Treatments moving forward will be palliative in nature. I will switch his cefepime over to Augmentin. He will complete an additional 2 weeks as I cannot exclude the possibility of a postobstructive process. Please call with additional questions or concerns through time. From a purely respiratory standpoint, he is stable for transition out of the hospital assuming that he has appropriate level of care at his destination. Of note, he is fearful that his cannot take care of that of him at home and he is interested in pursuing a rehabilitation and/or halfway option. Job ID: [id number]
[2019-03-29] MEDS ORDERED: Dexamethasone 4 MG TAB PO SCH (17:15)
[2019-03-29] MEDS: Rosuvastatin 5 MG TAB PO SCH (22:37)
[2019-03-29] MEDS: Melatonin 3 MG TAB PO PRN (22:38)
[2019-03-29] MEDS: Amoxicillin/Potassium Clav 500 MG TAB PO SCH (22:40)
[2019-03-30] MEDS: Levothyroxine Sodium 88 MCG TAB PO SCH (06:47)
[2019-03-30] MEDS: Ferrous Sulfate 325 MG TAB PO SCH ×2 (08:38→21:18)
[2019-03-30] MEDS: Polyethylene Glycol 3350 17 GM Packet PO SCH (08:38)
[2019-03-30] MEDS: RIOCIGUAT 2 MG PO SCH ×3 (08:39→21:22)
[2019-03-30] MEDS: Amoxicillin/Potassium Clav 500 MG TAB PO SCH ×2 (08:40→21:18)
[2019-03-30] MEDS: Dexamethasone 4 MG TAB PO SCH (08:40)
[2019-03-30] MEDS: Famotidine 20 MG TAB PO SCH ×2 (08:41→21:19)
[2019-03-30] MEDS: Clopidogrel Bisulfate 75 MG TAB PO SCH (08:41)
[2019-03-30] MEDS: Apixaban 5 MG TAB PO SCH ×2 (08:41→21:18)
[2019-03-30] MEDS: Sildenafil Citrate 20 MG TAB PO SCH ×3 (08:42→21:22)
[2019-03-30] MEDS: Senokot S 8.6-50 MG TAB PO SCH ×2 (08:42→21:19)
[2019-03-30] MEDS: Folic Acid 1 MG TAB PO SCH (08:43)
[2019-03-30] MEDS: Ubidecarenone 50 MG CAP PO SCH (08:48)
[2019-03-30] MEDS: traMADol HCl 50 MG TAB PO PRN ×3 (09:40→22:35)
--- NOTE | 2019-03-30 14:54 | PDOC.HOSPP ---
- Subjective Subjective: pt up in bed no complains - Objective Vital Signs & Weight: Vital Signs (12 hours) Temp Pulse Resp BP Pulse Ox 03/30/19 12:32 96 03/30/19 08:00 97.8 F 74 16 120/57 L 96 Weight Admit Weight 135 lb Weight 135 lb I&O: 03/29/19 03/30/19 03/31/19 06:59 06:59 06:59 Intake Total 850 Output Total 475 200 Balance 375 -200 Result Diagrams: 03/28/19 05:40 03/28/19 05:40 ROS - Review of Systems All systems: All other ROS were reviewed and found negative. Respiratory: denies: cough, dry, shortness of breath, hemoptysis, SOB with excertion, pleuritic pain, sputum, wheezing, other Cardiovascular: denies: chest pain, palpitations, orthopnea, paroxysmal noc. dyspnea, edema, light headedness, other - Medication Medications: Active Medications Generic Name Dose Route Start Last Admin Trade Name Freq PRN Reason Stop Dose Admin Albuterol/Ipratropium 3 ml 03/27/19 04:31 03/28/19 11:02 Duoneb NEB 3 ml Q6H PRN Administration SOB &/or Wheezing Amoxicillin/Clavulanate Potassium 500 mg 03/29/19 21:00 03/30/19 08:40 Augmentin PO 04/12/19 21:01 500 mg Q12HR TRACY Administration Apixaban 5 mg 03/28/19 09:00 03/30/19 08:41 Eliquis PO 5 mg BID TRACY Administration Clopidogrel Bisulfate 75 mg 03/26/19 09:00 03/30/19 08:41 Plavix PO 75 mg DAILY TRACY Administration Coenzyme Q10 400 mg 03/25/19 09:00 03/30/19 08:48 Coenzyme Q10 PO 400 mg DAILY TRACY Administration Dexamethasone 4 mg 03/30/19 08:00 03/30/19 08:40 Decadron PO 4 mg QAM-WM TRACY Administration Famotidine 20 mg 03/24/19 21:00 03/30/19 08:41 Pepcid PO 20 mg BID TRACY Administration Fentanyl 12 mcg 03/28/19 11:30 03/28/19 13:11 Duragesic TD 12 mcg Q3D TRACY Administration Ferrous Sulfate 325 mg 03/25/19 21:00 03/30/19 08:38 Feosol PO 325 mg BID TRACY Administration Folic Acid 5 mg 03/29/19 09:00 03/30/19 08:43 Folvite PO 5 mg DAILY TRACY Administration Levothyroxine Sodium 88 mcg 03/25/19 06:00 03/30/19 06:47 Synthroid PO 88 mcg 0600 TRACY Administration Melatonin 6 mg 03/28/19 20:49 03/29/19 22:38 Melatonin PO 6 mg HS PRN Administration Insomnia Morphine Sulfate 2 mg 03/24/19 13:27 03/29/19 13:53 Morphine SLOW IVP 2 mg Q4H PRN Administration Pain (Riociguat [Adempas] 0 mg 03/26/19 21:00 03/30/19 08:39 2 Mg) PO 2 mg TID TRACY Administration Polyethylene Glycol 17 gm 03/25/19 09:00 03/30/19 08:38 Miralax PO 17 gm DAILY TRACY Administration Rosuvastatin Calcium 5 mg 03/24/19 21:00 03/29/19 22:37 Crestor PO 5 mg QPM TRACY Administration Senna/Docusate Sodium 2 tab 03/24/19 21:00 03/30/19 08:42 Senokot S PO 2 tab BID TRACY Administration Sildenafil Citrate 20 mg 03/25/19 15:00 03/30/19 08:42 Revatio PO 20 mg TID TRACY Administration Sodium Chloride 10 ml 03/24/19 21:00 03/30/19 08:44 Flush - Normal Saline IVF 10 ml Q12HR TRACY Administration Sodium Chloride 10 ml 03/24/19 20:38 03/26/19 03:27 Flush - Normal Saline IVF 10 ml PRN PRN Administration Saline Flush Tramadol HCl 50 mg 03/24/19 13:23 03/30/19 09:40 Ultram PO 50 mg Q6H PRN Administration Pain - Exam Neck: negative: supple, symmetric, no JVD, no Thyromegaly, no lymphadenopathy, no carotid bruit, JVD Heart: negative: RRR, no murmur, no gallops, no rubs, normal peripheral pulses, irregular, diminshed peripheral pulses, murmur present, II/IV, III/IV Respiratory: negative: CTAB, no wheezes, no rales, no ronchi, normal chest expansion, no tachypnea, normal percussion, rales, rhonchi, tachypneic, wheezes Hosp A/P (1) L1, 2 lytic lesion with fracture and com Status: Acute (2) Status post pulmonary artery branches stent placement Code(s): Z98.890 - OTHER SPECIFIED POSTPROCEDURAL STATES Status: Acute (3) History of pulmonary embolus (PE) Code(s): Z86.711 - PERSONAL HISTORY OF PULMONARY EMBOLISM Status: Chronic (4) Pulmonary hypertension Code(s): I27.20 - PULMONARY HYPERTENSION, UNSPECIFIED Status: Chronic - Plan pt wants to go home. He will start radiation therapy in am. waiting for path. Pt wants to stay here until his hospital equipment has been set up.
[2019-03-30] MEDS: Rosuvastatin 5 MG TAB PO SCH (21:19)
[2019-03-30] MEDS: Melatonin 3 MG TAB PO PRN (22:35)
[2019-03-31] MEDS: Morphine 2 MG/ML SYRINGE SLOW IVP PRN (01:49)
[2019-03-31] MEDS: Levothyroxine Sodium 88 MCG TAB PO SCH (06:12)
[2019-03-31] MEDS: Polyethylene Glycol 3350 17 GM Packet PO SCH (08:21)
[2019-03-31] MEDS: RIOCIGUAT 2 MG PO SCH ×3 (08:22→21:36)
[2019-03-31] MEDS: traMADol HCl 50 MG TAB PO PRN ×3 (08:24→21:37)
[2019-03-31] MEDS: Ferrous Sulfate 325 MG TAB PO SCH ×2 (08:26→21:33)
[2019-03-31] MEDS: Folic Acid 1 MG TAB PO SCH (08:26)
[2019-03-31] MEDS: Senokot S 8.6-50 MG TAB PO SCH ×2 (08:27→21:33)
[2019-03-31] MEDS: Amoxicillin/Potassium Clav 500 MG TAB PO SCH ×2 (08:28→21:32)
[2019-03-31] MEDS: Dexamethasone 4 MG TAB PO SCH (08:29)
[2019-03-31] MEDS: Apixaban 5 MG TAB PO SCH ×2 (08:29→21:51)
[2019-03-31] MEDS: Clopidogrel Bisulfate 75 MG TAB PO SCH (08:30)
[2019-03-31] MEDS: Famotidine 20 MG TAB PO SCH ×2 (08:30→21:33)
[2019-03-31] MEDS: Sildenafil Citrate 20 MG TAB PO SCH ×3 (08:34→21:35)
[2019-03-31] MEDS: Ubidecarenone 50 MG CAP PO SCH (08:34)
[2019-03-31] MEDS: Rosuvastatin 5 MG TAB PO SCH (21:32)
[2019-03-31] MEDS: Melatonin 3 MG TAB PO PRN (21:42)
[2019-04-01] MEDS: Levothyroxine Sodium 88 MCG TAB PO SCH (06:11)
[2019-04-01] MEDS: traMADol HCl 50 MG TAB PO PRN ×2 (06:13→14:20)
[2019-04-01] MEDS: RIOCIGUAT 2 MG PO SCH ×3 (09:14→20:51)
[2019-04-01] MEDS: Amoxicillin/Potassium Clav 500 MG TAB PO SCH ×2 (09:15→20:51)
[2019-04-01] MEDS: Dexamethasone 4 MG TAB PO SCH (09:16)
[2019-04-01] MEDS: Senokot S 8.6-50 MG TAB PO SCH ×2 (09:17→20:51)
[2019-04-01] MEDS: Apixaban 5 MG TAB PO SCH ×2 (09:17→20:51)
[2019-04-01] MEDS: Clopidogrel Bisulfate 75 MG TAB PO SCH (09:17)
[2019-04-01] MEDS: Ferrous Sulfate 325 MG TAB PO SCH ×2 (09:17→20:52)
[2019-04-01] MEDS: Famotidine 20 MG TAB PO SCH ×2 (09:17→20:52)
[2019-04-01] MEDS: Folic Acid 1 MG TAB PO SCH (09:18)
[2019-04-01] MEDS: Polyethylene Glycol 3350 17 GM Packet PO SCH (09:18)
[2019-04-01] MEDS: Sildenafil Citrate 20 MG TAB PO SCH ×3 (09:21→20:52)
[2019-04-01] MEDS: Ubidecarenone 50 MG CAP PO SCH (09:22)
--- NOTE | 2019-04-01 12:08 | PDOC.PALFU ---
Palliative Care Follow-up Note Patient with increase in shortness of breath requiring O2 at 2 liters via Nasal Cannula. Most likely related to anemia, disease progression. Secondary to O2 dependence in hospital patient will need oxygen via nasal cannula at home and to include a portable means of o2 to promote optimal respiratory status for Mr Greco. Order written for O2 use at home.
[2019-04-01 12:46] LABS: Anion Gap 9 mmol/L (10-20); BUN (Urea Nitrogen) 18 mg/dL (8.4-25.7); Calc. Creatinine Clearance 60 mL/min (70-130); Calcium 8.9 mg/dL (7.8-10.44); Carbon Dioxide 26 mmol/L (23-31); Chloride 101 mmol/L (98-107); Estimated GFR-MDRD Greater than 90; Glucose 132 mg/dL (83-110); Potassium 3.9 mmol/L (3.5-5.1); Sodium 132 mmol/L (136-145)
[2019-04-01 12:56] LABS: #Eosinphils 0.1 thou/uL (0.0-0.7); #Lymphocytes 0.5 thou/uL (1.20-3.40); #Monocytes 0.6 thou/uL (0.11-0.59); #Neutrophils 7.7 thou/uL (1.40-6.50); %Eosinophils 0.8 % (0.0-10.0); %Lymphocytes 5.6 % (21.0-51.0); %Monocytes 6.6 % (0.0-10.0); Hypochromia SLIGHT = 6-15 cells (100X) (0-5/hpf); MDiff Complete? YES; Mean Corpuscular HGB CONC 31.2 g/dL (32.0-36.0); Mean Corpuscular Hemoglobin 25.2 pg (27.0-31.0); Mean Corpuscular Volume 80.7 fL (78.0-98.0); Platelet Count 233 thou/uL (130-400); Platelet Morphology Comment Appears Adequate; Polychromasia SLIGHT = 2-3 cells (100X) (0-2/hpf); RBC Distribution Width 20.1 % (11.5-14.5); Red Blood Cell (RBC) Count 3.56 mill/uL (4.70-6.10); White Blood Cell (WBC) Count 8.9 thou/uL (4.8-10.8)
[2019-04-01] MEDS: Morphine 2 MG/ML SYRINGE SLOW IVP PRN ×2 (14:51→18:43)
[2019-04-01] MEDS ORDERED: Ondansetron PF 4 MG/2 ML Vial IVP PRN (17:04)
--- NOTE | 2019-04-01 17:06 | PDOC.HOSPP ---
- Subjective Subjective: pt up in bed no complains - Objective Vital Signs & Weight: Vital Signs (12 hours) Temp Pulse Resp BP Pulse Ox 04/01/19 08:00 93 L 04/01/19 07:55 97.7 F 60 18 136/63 93 L Weight Admit Weight 135 lb Weight 135 lb I&O: 03/31/19 04/01/19 04/02/19 06:59 06:59 06:59 Intake Total 400 Output Total 1450 Balance -1050 Result Diagrams: 04/01/19 12:19 04/01/19 12:19 ROS - Review of Systems All systems: All other ROS were reviewed and found negative. ENT: denies: ear pain, ear discharge, nose pain, nose discharge, nose congestion , mouth pain, mouth swelling, throat pain, throat swelling, other Respiratory: denies: cough, dry, shortness of breath, hemoptysis, SOB with excertion, pleuritic pain, sputum, wheezing, other Cardiovascular: denies: chest pain, palpitations, orthopnea, paroxysmal noc. dyspnea, edema, light headedness, other - Medication Medications: Active Medications Generic Name Dose Route Start Last Admin Trade Name Freq PRN Reason Stop Dose Admin Albuterol/Ipratropium 3 ml 03/27/19 04:31 03/30/19 18:28 Duoneb NEB 3 ml Q6H PRN Administration SOB &/or Wheezing Amoxicillin/Clavulanate Potassium 500 mg 03/29/19 21:00 04/01/19 09:15 Augmentin PO 04/12/19 21:01 500 mg Q12HR TRACY Administration Apixaban 5 mg 03/28/19 09:00 04/01/19 09:17 Eliquis PO 5 mg BID TRACY Administration Clopidogrel Bisulfate 75 mg 03/26/19 09:00 04/01/19 09:17 Plavix PO 75 mg DAILY TRACY Administration Coenzyme Q10 400 mg 03/25/19 09:00 04/01/19 09:22 Coenzyme Q10 PO Not Given DAILY TRACY Dexamethasone 4 mg 03/30/19 08:00 04/01/19 09:16 Decadron PO 4 mg QAM-WM TRACY Administration Famotidine 20 mg 03/24/19 21:00 04/01/19 09:17 Pepcid PO 20 mg BID TRACY Administration Fentanyl 25 mcg 03/31/19 12:00 03/31/19 11:54 Duragesic TD 25 mcg Q3D TRACY Administration Ferrous Sulfate 325 mg 03/25/19 21:00 04/01/19 09:17 Feosol PO 325 mg BID TRACY Administration Folic Acid 5 mg 03/29/19 09:00 04/01/19 09:18 Folvite PO 5 mg DAILY TRACY Administration Levothyroxine Sodium 88 mcg 03/25/19 06:00 04/01/19 06:11 Synthroid PO 88 mcg 0600 TRACY Administration Melatonin 6 mg 03/28/19 20:49 03/31/19 21:42 Melatonin PO 6 mg HS PRN Administration Insomnia Morphine Sulfate 2 mg 03/24/19 13:27 04/01/19 14:51 Morphine SLOW IVP 2 mg Q4H PRN Administration Pain (Riociguat [Adempas] 0 mg 03/26/19 21:00 04/01/19 14:22 2 Mg) PO 2 mg TID TRACY Administration Polyethylene Glycol 17 gm 03/25/19 09:00 04/01/19 09:18 Miralax PO 17 gm DAILY TRACY Administration Rosuvastatin Calcium 5 mg 03/24/19 21:00 03/31/19 21:32 Crestor PO 5 mg QPM TRACY Administration Senna/Docusate Sodium 2 tab 03/24/19 21:00 04/01/19 09:17 Senokot S PO 2 tab BID TRACY Administration Sildenafil Citrate 20 mg 03/25/19 15:00 04/01/19 14:22 Revatio PO 20 mg TID TRACY Administration Sodium Chloride 10 ml 03/24/19 21:00 04/01/19 09:19 Flush - Normal Saline IVF 10 ml Q12HR TRACY Administration Sodium Chloride 10 ml 03/24/19 20:38 03/26/19 03:27 Flush - Normal Saline IVF 10 ml PRN PRN Administration Saline Flush Tramadol HCl 50 mg 03/24/19 13:23 04/01/19 14:20 Ultram PO 50 mg Q6H PRN Administration Pain - Exam Heart: negative: RRR, no murmur, no gallops, no rubs, normal peripheral pulses, irregular, diminshed peripheral pulses, murmur present, II/IV, III/IV Respiratory: negative: CTAB, no wheezes, no rales, no ronchi, normal chest expansion, no tachypnea, normal percussion, rales, rhonchi, tachypneic, wheezes Hosp A/P (1) L1, 2 lytic lesion with fracture and com Status: Acute (2) Status post pulmonary artery branches stent placement Code(s): Z98.890 - OTHER SPECIFIED POSTPROCEDURAL STATES Status: Acute (3) History of pulmonary embolus (PE) Code(s): Z86.711 - PERSONAL HISTORY OF PULMONARY EMBOLISM Status: Chronic (4) Pulmonary hypertension Code(s): I27.20 - PULMONARY HYPERTENSION, UNSPECIFIED Status: Chronic - Plan Advised pt to follow up with his primary to get his pathology results. He will need oncology follow for options if he decides to do chemo. pt to go for radiation today and will be discharged in am. He is getting his equipment set up today.
[2019-04-01] MEDS: Melatonin 3 MG TAB PO PRN (20:51)
[2019-04-01] MEDS: Rosuvastatin 5 MG TAB PO SCH (20:52)
[2019-04-02] MEDS: Levothyroxine Sodium 88 MCG TAB PO SCH (06:51)
[2019-04-02 07:51] VITALS: BP 124/67; TEMP 97.5
[2019-04-02] MEDS: Polyethylene Glycol 3350 17 GM Packet PO SCH (08:29)
[2019-04-02] MEDS: Folic Acid 1 MG TAB PO SCH (08:31)
[2019-04-02] MEDS: RIOCIGUAT 2 MG PO SCH (08:32)
[2019-04-02] MEDS: Amoxicillin/Potassium Clav 500 MG TAB PO SCH (08:33)
[2019-04-02] MEDS: Clopidogrel Bisulfate 75 MG TAB PO SCH (08:33)
[2019-04-02] MEDS: Apixaban 5 MG TAB PO SCH (08:33)
[2019-04-02] MEDS: Sildenafil Citrate 20 MG TAB PO SCH (08:34)
[2019-04-02] MEDS: Senokot S 8.6-50 MG TAB PO SCH (08:34)
[2019-04-02] MEDS: traMADol HCl 50 MG TAB PO PRN (08:35)
[2019-04-02] MEDS: Dexamethasone 4 MG TAB PO SCH (08:37)
[2019-04-02] MEDS: Famotidine 20 MG TAB PO SCH (08:37)
[2019-04-02] MEDS: Ferrous Sulfate 325 MG TAB PO SCH (08:38)
[2019-04-02] MEDS: Ubidecarenone 50 MG CAP PO SCH (08:39)
[2019-04-02] MEDS: Morphine 2 MG/ML SYRINGE SLOW IVP PRN ×2 (09:31→14:46)
[2019-04-02] MEDS ORDERED: fentaNYL 50 mcg/hour Patch TD SCH (13:00)
== END 2019-04-02 15:25 | disposition home or self-care (01) | DRG 478 ==
LOC: ERS 09:41 → ONC 12:25
PROVIDERS: ADMIT Internal Medicine; ATTEND Internal Medicine
PROC: 0QB03ZX Excision of Lumbar Vertebra, Percutaneous Approach, Diagnostic (ICD-10-PCS; principal; 2019-03-27)
DX: C79.51 Secondary malignant neoplasm of bone (principal); I50.22 Chronic systolic (congestive) heart failure; J98.11 Atelectasis; M84.58XA Pathological fracture in neoplastic disease, other specified site, initial encounter for fracture; Z51.5 Encounter for palliative care; I11.0 Hypertensive heart disease with heart failure; E86.0 Dehydration; E78.00 Pure hypercholesterolemia, unspecified; E03.9 Hypothyroidism, unspecified; Z86.711 Personal history of pulmonary embolism; Z95.0 Presence of cardiac pacemaker; Z79.01 Long term (current) use of anticoagulants; Z79.899 Other long term (current) drug therapy; Z85.828 Personal history of other malignant neoplasm of skin
CPT/HCPCS: 20225; 27096; 36415; 36430; 71045; 71260; 72131; 72170; 74177; 77002; 77014; 77280; 77290; 77306; 77332; 77412; 80048; 80053; 81003; 82378; 84165; 84166; 85025; 85652; 86140; 86850; 86900; 86901; 87040; 88307; 88311; 88333; 88341; 88342; 94640; 96361; 96374; G0103; G0260; J0692; J1030; J1956; J2250; J2270; J2405; J3010; J3490; J7620; J8540; L0639; P9016; Q9966; S0020